=== PATIENT | male | born 1930 | race Caucasian/White ===

== ENCOUNTER 2017-08-24 17:05 | Emergency (ER) | payer MEDICARE ==
[~2017-08-24] VITALS: Ht 170.2 cm; Wt 91.0 kg
[~2017-08-24 17:05] MED LIST: ACET325 PO; ALLO300T2 PO; CHOL1TAB7 PO; COUM4TAB7 PO; ENOX100P SQ; FINA5TAB77 PO; GABA100C4 PO; HYDR-3580 PO; LUTE1CAP PO; MAGN250T13 PO; METO50CR PO; OMEGCAP2 PO; OXYB5TAB33 PO; PANT20 PO; RESV50CA PO; SIMV40 PO; TAMS0.4C67 PO; TELM1TAB PO; TRIA50 PO; Z.0.COMMODE-3:1; Z.0.WALKERFRONT
[2017-08-24 17:16] VITALS: BP 189/83; PULSE 102; RESP 16; TEMP 97.7; O2SAT 95
--- NOTE | 2017-08-24 17:46 | PD ---
HPI Chief Complaint: Fall Time Seen by Provider: 17:29 Travel History International Travel<30 days: No Contact w/Intl Traveler<30days: No Traveled to known affect area: No History of Present Illness HPI Patient 86-year-old male presents emergency department for evaluation of left- sided chest pain. Patient states he went out to get the newspaper this morning the wind was blowing the door hit him on his side and knocked him over, he states he hit his chest against the wall. Since then he's been having some chest wall pain. Denies any head injury headache neck pain back pain. States it hurts worse when he takes deep breath. No shortness of breath, no nausea no vomiting no bruising on his abdomen. States she also has some right knee pain but this is chronic for him. He took a hydrocodone 7.5/325 at home with minimal pain relief. Symptoms started this morning, constant, worsens when takes deep breath, context as above. PFSH Past Medical History Hx Anticoagulant Therapy: Yes (COUMADIN) Arthritis: Yes Asthma: No Atrial Fibrillation: Yes Autoimmune Disease: No Heart Rhythm Problems: Yes (AFIB) Cancer: No Cardiac Catheterization: Yes (STENT 2008) Cardiovascular Problems: Yes (ARTIFICIAL VALVE) High Cholesterol: Yes Chest Pain: Yes Congestive Heart Failure: No COPD: Yes Diminished Hearing: Yes (HEARING AIDS) Endocrine: No GERD: Yes (OCCASIONAL) Genitourinary: No Hiatal Hernia: No Hypertension: Yes Immune Disorder: No Implanted Vascular Access Dvce: Yes Kidney Stones: Yes Musculoskeletal: Yes Neurologic: No Psychiatric: No Reproductive: No Respiratory: Yes Immunizations Current: Yes Myocardial Infarction: Yes (2008) Sleep Apnea: No Ulcer: No Influenza Vaccination: Yes Past Surgical History AICD: No Arteriovenous Shunt: No Cardiac Surgery: Yes (MITRAL VALVE REPLACEMENT 1997) Genitourinary Surgery: Yes (VASECTOMY) Insulin Pump: No Joint Replacement: No Neurologic Surgery: Yes (LAMINECTOMY) Pacemaker: No Thoracic Surgery: Yes Valve Replacement: Yes (MITRAL VALVE REPLACEMENT 1997) Other Surgery: Yes (HEMORRHOIDECTOMY) Family History Family Myocardial Infarction: Yes (MOTHER AND FATHER) Social History Alcohol Use: Yes (3-4 DRINKS PER WEEK) Tobacco Use: No Substance Use: No Allergies-Medications (Allergen,Severity, Reaction): Uncoded Allergies: MUSCLE RELAXERS, (Allergy, Mild, ITCHING., 08/24/17) TRANQUILIZERS (Allergy, Mild, ITCHING., 08/24/17) Reported Meds & Prescriptions Reported Meds & Active Scripts Active Percocet (Oxycodone-Acetaminophen) 10-325 mg Tab 1 Tab PO Q6H PRN Reported Resveratrol 50 Mg Cap 50 Mg PO DAILY Allopurinol 300 Mg Tab 300 Mg PO DAILY Pantoprazole (Pantoprazole Sodium) 20 Mg Tab 20 Mg PO DAILY Triamterene-Hydrochlorothiazide 50-25 Mg Cap 1 Cap PO DAILY [place]-3 Fish Oil/Vitamin (Fish Oil-Cholecalciferol) 1,000-1,000 Mg Cap 1 Cap PO DAILY Vitamin D-1000 (Cholecalciferol) 1,000 Unit Tab 400 Units PO DAILY Lutein-Zeaxanthin 6-0.24 Mg Cap Magnesium Oxide 250 Mg Tab 250 Mg PO DAILY Gabapentin 100 Mg Cap 100 Mg PO BID Tamsulosin (Tamsulosin HCl) 0.4 Mg Cap 0.4 Mg PO HS Finasteride 5 Mg Tab 5 Mg PO HS Do not crush. Oxybutynin ER 24 HR (Oxybutynin Chloride) 5 Mg Tab 5 Mg PO HS Metoprolol Tartrate 50 Mg Tab 50 Mg PO DAILY Telmisartan 40 Mg Tab 40 Mg PO DAILY Simvastatin 40 Mg Tab 40 Mg PO HS Warfarin 6 Mg Tab 6 Mg PO DAILY Review of Systems Except as stated in HPI: all other systems reviewed are Neg Physical Exam Narrative GENERAL: Well-developed well-nourished appears younger than stated age in no obvious distress SKIN: No bruising no lacerations seen on his person. HEAD: Atraumatic. Normocephalic. EYES: Pupils equal and round. No scleral icterus. No injection or drainage. ENT: No nasal bleeding or discharge. Mucous membranes pink and moist. NECK: Trachea midline. No JVD. CARDIOVASCULAR: Regular rate and rhythm. No murmur appreciated. RESPIRATORY: No accessory muscle use. Clear to auscultation. Breath sounds equal bilaterally. GASTROINTESTINAL: Abdomen soft, non-tender, nondistended. Hepatic and splenic margins not palpable. No Lee Lyons sign no Maud's Sign. Abdomen soft, no peritoneal signs, no rebound no percussive tenderness. MUSCULOSKELETAL: No obvious deformities. No clubbing. No cyanosis. No edema. Patient is some tenderness to the left flank over the inferior most ribs, pain seems to originate from his posterior ribs where he is most tender. No bruising no step-off no abrasions. No midline CT or L-spine tenderness. 5 out of 5 strength in all 4 extremities. Patient does have a small abrasion over the anterior right knee. No bony tenderness, full nontender range of motion of all extremities, no bony tenderness of any extremity NEUROLOGICAL: Awake and alert. No obvious cranial nerve deficits. Motor grossly within normal limits. Normal speech. PSYCHIATRIC: Appropriate mood and affect; insight and judgment normal. Data Data Last Documented VS Vital Signs Date Time Temp Pulse Resp B/P (MAP) Pulse Ox O2 Delivery O2 Flow Rate FiO2 08/24/17 19:18 81 18 177/76 (109) 94 08/24/17 17:16 97.7 Orders Orders Ribs, Uni (W/O Exp Cxr) (08/24/17 ) Chest, Pa & Lat (08/24/17 ) Ed Poc Ultrasound (08/24/17 ) Oxycodone (Roxicodone) (08/24/17 18:00) Knee, Ltd (1 Or 2vws) (08/24/17 ) Resp Incentive Spirometry (08/24/17 ) Ed Discharge Order (08/24/17 19:10) MDM Medical Decision Making Medical Screen Exam Complete: Yes Emergency Medical Condition: Yes Differential Diagnosis rib fracture, rib contusion, splenic laceration seems less likely, kidney laceration seems less likely. Narrative Course Patient roomed in emergency department, chest x-ray shows multiple left-sided rib fractures. Last 24 hours Impressions Ribs X-Ray 08/24/17 0000 Signed Impressions: Service Date/Time: Thursday, August 24, 2017 18:00 - CONCLUSION: 1. Left- sided rib fractures posteriorly. Antione Garber MD Knee X-Ray 08/24/17 0000 Signed Impressions: Service Date/Time: Thursday, August 24, 2017 18:05 - CONCLUSION: 1. Mild degenerative changes without fracture. 2. Popliteal stent. Antione Garber MD Chest X-Ray 08/24/17 0000 Signed Impressions: Service Date/Time: Thursday, August 24, 2017 18:00 - CONCLUSION: 1. Several left-sided rib fractures. 2. Cardiomegaly with slight interstitial prominence. Antione Garber MD Bedside ultrasound is performed, which shows no obvious spleen or kidney injury and no free fluid in the abdomen. Patient's abdominal exam coupled with this bedside ultrasound lowers the index is suspicion for a spleen or kidney injury to a very small suspicion. Discussed with the patient that we could consider doing a CAT scan be given that he is several hours out from injury this even further lowers possibility. However he is on blood thinners and I cannot completely exclude an injury. He would like to go home now, we discussed at length the signs and symptoms that should prompt return to the ER. He will be staying with his son rm. Incentive spirometer was ordered, pain medication. Discussed follow-up with his primary care physician. Diagnosis Primary Impression: Rib fractures Qualified Codes: S22.42XA - Multiple fractures of ribs, left side, initial encounter for closed fracture Med/Other Pt SpecificInfo: Prescription(s) given Scripts Oxycodone-Acetaminophen (Percocet) 10-325 mg Tab 1 TAB PO Q6H Y for PAIN, #15 TAB 0 Refills Prov: Esau Boland MD 08/24/17 Disposition: 01 DISCHARGE HOME Condition: Stable Esau Boland MD Aug 24, 2017 17:46
[2017-08-24] MEDS ORDERED: TRIA1CAP PO (17:52)
[2017-08-24] MEDS ORDERED: TAMS0.4C4 PO (17:52)
[2017-08-24] MEDS ORDERED: FINA5TAB2 PO (17:52)
[2017-08-24] MEDS ORDERED: VITA1000 PO (17:52)
[2017-08-24] MEDS ORDERED: WARF-60 PO (17:52)
[2017-08-24] MEDS ORDERED: SIMV40TA PO (17:52)
[2017-08-24] MEDS ORDERED: METO50TA PO (17:52)
[2017-08-24] MEDS ORDERED: GABA100C4 PO (17:52)
[2017-08-24] MEDS ORDERED: RESV50CA PO (17:52)
[2017-08-24] MEDS ORDERED: ALLO300T2 PO (17:52)
[2017-08-24] MEDS ORDERED: LUTE1CAP (17:52)
[2017-08-24] MEDS ORDERED: PANT20TA2 PO (17:52)
[2017-08-24] MEDS ORDERED: TELM1TAB PO (17:52)
[2017-08-24] MEDS ORDERED: MAGN250T11 PO (17:52)
[2017-08-24] MEDS ORDERED: OMEGCAP PO (17:52)
[2017-08-24] MEDS ORDERED: OXYB5TAB PO (17:52)
--- NOTE | 2017-08-24 18:30 | RADRPT ---
EXAM DATE/TIME: 08/24/2017 18:05 [facility] COMPARISON: No previous studies available for comparison. INDICATIONS : Right knee pain since falling today. MEDICAL HISTORY : None. SURGICAL HISTORY : Laminectomy. Valve replacement. ENCOUNTER: Initial ACUITY: 1 day PAIN SCORE: 8/10 LOCATION: Right knee. FINDINGS: Two view examination of the right knee demonstrates no evidence of fracture or dislocation. Bony min eralization is normal. Mild degenerative changes. Popliteal stent noted. Osteopenia. CONCLUSION: 1. Mild degenerative changes without fracture. 2. Popliteal stent. Antione Garber MD on August 24, 2017 at 18:28 Board Certified Radiologist. This report was verified electronically.
--- NOTE | 2017-08-24 18:30 | RADRPT ---
EXAM DATE/TIME: 08/24/2017 18:00 [facility] COMPARISON: No previous studies available for comparison. INDICATIONS : Left side chest pain since falling this morning. MEDICAL HISTORY : None. SURGICAL HISTORY : Laminectomy. Valve replacement. ENCOUNTER: Initial ACUITY: 1 day PAIN SCORE: 8/10 LOCATION: Left chest FINDINGS: PA and lateral views of the chest demonstrate cardiomegaly and evidence of previous heart valve repla cement. Slight interstitial prominence. The cardiomediastinal contours are unremarkable. Left-sided r ib fractures. CONCLUSION: 1. Several left-sided rib fractures. 2. Cardiomegaly with slight interstitial prominence. Antione Garber MD on August 24, 2017 at 18:26 Board Certified Radiologist. This report was verified electronically.
--- NOTE | 2017-08-24 18:45 | RADRPT ---
EXAM DATE/TIME: 08/24/2017 18:00 [facility] COMPARISON: No previous studies available for comparison. INDICATIONS : Left rib pain since falling this morning. MEDICAL HISTORY : None. SURGICAL HISTORY : Laminectomy. Valve replacement. ENCOUNTER: Initial ACUITY: 1 day PAIN SCORE: 8/10 LOCATION: Left chest FINDINGS: Multiple views of the right ribs were performed. Several left-sided posterior rib fractures. No pneum othorax. Cardiomegaly and previous heart valve replacement. CONCLUSION: 1. Left-sided rib fractures posteriorly. Antione Garber MD on August 24, 2017 at 18:43 Board Certified Radiologist. This report was verified electronically.
[2017-08-24] MEDS ORDERED: PERC10TA27 PO (19:10)
[2017-08-24 19:18] VITALS: BP 177/76
== END 2017-08-24 19:45 | disposition home or self-care (01) ==
LOC: PHED 17:05
DX: S22.42XA Multiple fractures of ribs, left side, initial encounter for closed fracture (principal); I51.7 Cardiomegaly; I48.91 Unspecified atrial fibrillation; Z79.01 Long term (current) use of anticoagulants; J44.9 Chronic obstructive pulmonary disease, unspecified; I10 Essential (primary) hypertension; I25.2 Old myocardial infarction; Z95.2 Presence of prosthetic heart valve; W18.09XA Striking against other object with subsequent fall, initial encounter; Y92.008 Other place in unspecified non-institutional (private) residence as the place of occurrence of the external cause
CPT/HCPCS: 71046; 71100; 73560; 94150; 99284

== ENCOUNTER 2017-12-02 21:31 | Inpatient (IN) | payer MEDICARE ==
[~2017-12-02] VITALS: Ht 171.4 cm; Wt 100.6 kg
[~2017-12-02 21:31] MED LIST changes: -ACET325 PO; -CHOL1TAB7 PO; -COUM4TAB7 PO; -ENOX100P SQ; +FINA5TAB2 PO; -FINA5TAB77 PO; -HYDR-3580 PO; +LUTE1CAP; -LUTE1CAP PO; +MAGN250T11 PO; -MAGN250T13 PO; -METO50CR PO; +METO50TA PO; +OMEGCAP PO; -OMEGCAP2 PO; +OXYB5TAB PO; -OXYB5TAB33 PO; -PANT20 PO; +PANT20TA2 PO; +PERC10TA27 PO; -SIMV40 PO; +SIMV40TA PO; +TAMS0.4C4 PO; -TAMS0.4C67 PO; +TRIA1CAP PO; -TRIA50 PO; +VITA1000 PO; +WARF-60 PO; -Z.0.COMMODE-3:1; -Z.0.WALKERFRONT
[2017-12-02 21:32] VITALS: BP 174/73; PULSE 101; RESP 20; TEMP 103.8; O2SAT 89
[2017-12-02] MEDS ORDERED: SODIUM CHLOR 0.9% 1000 ML INJ 1,000 ML IV SCH ×2 (21:36→23:15)
[2017-12-02 21:40] VITALS: BP 174/73; PULSE 98; RESP 18; O2SAT 96
[2017-12-02] MEDS ORDERED: SODIUM CHLORIDE 0.9% FLUSH 10 ML FLUSH IV FLUSH PRN (21:45)
--- NOTE | 2017-12-02 21:50 | PD ---
HPI Chief Complaint: Altered mental status Time Seen by Provider: 21:36 Travel History International Travel<30 days: No Contact w/Intl Traveler<30days: No Traveled to known affect area: No History of Present Illness HPI 87-year-old male brought to the emergency room by EMS for altered mental status. He lives at his home and was diagnosed with shingles today. He was put on hydrocodone and he took his first dose today after which she was noticed to be acting confused and bizarre. Patient has been in that state on route and upon arrival. He is able to tell his name and follow commands but is confused in time in place. A rectal temp was done which was 103.5. Patient is not in a condition to give any meaningful history. FORMERLY [facility], [facility] Past Medical History Narrative Medical List of his past medical, surgical, social and family history is reviewed from the nursing note. Hx Anticoagulant Therapy: Yes (COUMADIN) Arthritis: Yes Asthma: No Atrial Fibrillation: Yes Autoimmune Disease: No Heart Rhythm Problems: Yes (AFIB) Cancer: No Cardiac Catheterization: Yes (STENT 2008) Cardiovascular Problems: Yes (ARTIFICIAL VALVE) High Cholesterol: Yes Chest Pain: Yes Congestive Heart Failure: No COPD: Yes Diminished Hearing: Yes (HEARING AIDS) Endocrine: No GERD: Yes (OCCASIONAL) Genitourinary: No Hiatal Hernia: No Hypertension: Yes Immune Disorder: No Implanted Vascular Access Dvce: Yes Kidney Stones: Yes Musculoskeletal: Yes Neurologic: No Psychiatric: No Reproductive: No Respiratory: Yes Immunizations Current: Yes Myocardial Infarction: Yes (2008) Sleep Apnea: No Ulcer: No Past Surgical History AICD: No Arteriovenous Shunt: No Cardiac Surgery: Yes (MITRAL VALVE REPLACEMENT 1997) Genitourinary Surgery: Yes (VASECTOMY) Insulin Pump: No Joint Replacement: No Neurologic Surgery: Yes (LAMINECTOMY) Pacemaker: No Thoracic Surgery: Yes Valve Replacement: Yes (MITRAL VALVE REPLACEMENT 1997) Other Surgery: Yes (HEMORRHOIDECTOMY) Social History Alcohol Use: Yes (3-4 DRINKS PER WEEK) Tobacco Use: No Substance Use: No Allergies-Medications (Allergen,Severity, Reaction): Uncoded Allergies: MUSCLE RELAXERS, (Allergy, Mild, ITCHING., 08/24/17) TRANQUILIZERS (Allergy, Mild, ITCHING., 08/24/17) Comments List of his allergies reviewed from the nursing note. Reported Meds & Prescriptions Reported Meds & Active Scripts Active Reported Allopurinol 300 Mg Tab 300 Mg PO DAILY Triamterene-Hydrochlorothiazide 50-25 Mg Cap 1 Cap PO DAILY Gabapentin 100 Mg Cap 100 Mg PO BID Finasteride 5 Mg Tab 5 Mg PO HS Do not crush. Oxybutynin ER 24 HR (Oxybutynin Chloride) 5 Mg Tab 5 Mg PO HS Telmisartan 40 Mg Tab 40 Mg PO DAILY Simvastatin 40 Mg Tab 40 Mg PO HS Narrative Medication List of his home medications reviewed from the nursing note. Review of Systems ROS Limitations: Altered Mental Status Except as stated in HPI: all other systems reviewed are Neg Physical Exam Exam Limitations: Altered Mental Status Narrative GENERAL: Elderly, altered mental status, moderate distress SKIN: Focused skin assessment warm/dry. Hyperpigmentation of bilateral lower extremities with scabs HEAD: Atraumatic. Normocephalic. EYES: Pupils equal and round. No scleral icterus. No injection or drainage. ENT: No nasal bleeding or discharge. Dry mucous membrane and coated tongue. NECK: Trachea midline. No JVD. CARDIOVASCULAR: Regular rate and rhythm. No murmur appreciated. RESPIRATORY: No accessory muscle use. Clear to auscultation. Breath sounds equal bilaterally. GASTROINTESTINAL: Abdomen soft, non-tender, nondistended. Hepatic and splenic margins not palpable. MUSCULOSKELETAL: No obvious deformities. No clubbing. No cyanosis. No edema. NEUROLOGICAL: Altered mental status, GCS of 13. No obvious cranial nerve deficits. Motor grossly within normal limits. Normal speech. PSYCHIATRIC: Appropriate mood and affect; insight and judgment normal. Data Data Last Documented VS Vital Signs Date Time Temp Pulse Resp B/P (MAP) Pulse Ox O2 Delivery O2 Flow Rate FiO2 12/02/17 22:57 102.0 102 20 115/59 (77) 96 Nasal Cannula 2.00 Orders Orders Electrocardiogram (12/02/17 21:36) Ammonia (12/02/17 21:36) Complete Blood Count With Diff (12/02/17 21:36) Comprehensive Metabolic Panel (12/02/17 21:36) Creatine Kinase (Cpk) (12/02/17 21:36) Prothrombin Time / Inr (Pt) (12/02/17 21:36) Troponin I (12/02/17 21:36) Thyroid Stimulating Hormone (12/02/17 21:36) Urinalysis - C+S If Indicated (12/02/17 21:36) Lactic Acid Sepsis Protocol (12/02/17 21:36) Blood Culture (12/02/17 21:36) Chest, Single Ap (12/02/17 21:36) Ct Brain W/O Iv Contrast(Rout) (12/02/17 21:36) Blood Glucose (12/02/17 21:36) Ecg Monitoring (12/02/17 21:36) Iv Access Insert/Monitor (12/02/17 21:36) Oximetry (12/02/17 21:36) Sodium Chloride 0.9% Flush (Ns Flush) (12/02/17 21:45) Sodium Chlor 0.9% 1000 Ml Inj (Ns 1000 M (12/02/17 21:36) Drug Screen, Random Urine (12/02/17 21:36) Alcohol (Ethanol) (12/02/17 21:36) Acetaminophen (Tylenol) (12/02/17 22:15) Influenzae A/B Antigen (12/02/17 22:04) Piperacil-Tazo 4.5 Gm Premix (Zosyn 4.5 (12/02/17 22:15) Vancomycin Inj (Vancomycin Inj) (12/02/17 22:15) Admit Order (Ed Use Only) (12/02/17 23:03) Labs Laboratory Tests Test 12/02/17 21:45 12/02/17 22:05 12/02/17 22:12 Urine Color YELLOW Urine Turbidity CLEAR Urine pH 6.0 Urine Specific [place] 1.015 Urine Protein NEG mg/dL Urine Glucose (UA) NEG mg/dL Urine Ketones NEG mg/dL Urine Occult Blood NEG Urine Nitrite NEG Urine Bilirubin NEG Urine Urobilinogen 0.2 MG/DL Urine Leukocyte Esterase NEG Urine RBC 0-3 /hpf Urine WBC 0-2 /hpf Urine Squamous Epithelial Cells 0-5 /hpf Urine Bacteria NONE /hpf Microscopic Urinalysis Comment CULT NOT INDICATED Urine Opiates Screen POS Urine Barbiturates Screen NEG Urine Amphetamines Screen NEG Urine Benzodiazepines Screen NEG Urine Cocaine Screen NEG Urine Cannabinoids Screen NEG White Blood Count 11.5 TH/MM3 Red Blood Count 3.93 MIL/MM3 Hemoglobin 12.9 GM/DL Hematocrit 37.8 % Mean Corpuscular Volume 96.2 FL Mean Corpuscular Hemoglobin 32.8 PG Mean Corpuscular Hemoglobin Concent 34.1 % Red Cell Distribution Width 13.6 % Platelet Count 182 TH/MM3 Mean Platelet Volume 6.9 FL Neutrophils (%) (Auto) 88.7 % Lymphocytes (%) (Auto) 3.8 % Monocytes (%) (Auto) 3.5 % Eosinophils (%) (Auto) 0.5 % Basophils (%) (Auto) 3.5 % Neutrophils # (Auto) 10.2 TH/MM3 Lymphocytes # (Auto) 0.4 TH/MM3 Monocytes # (Auto) 0.4 TH/MM3 Eosinophils # (Auto) 0.1 TH/MM3 Basophils # (Auto) 0.4 TH/MM3 CBC Comment DIFF FINAL Differential Comment Prothrombin Time 30.1 SEC Prothromb Time International Ratio 3.0 RATIO Blood Urea Nitrogen 18 MG/DL Creatinine 1.20 MG/DL Random Glucose 92 MG/DL Total Protein 7.6 GM/DL Albumin 3.7 GM/DL Calcium Level 8.9 MG/DL Alkaline Phosphatase 86 U/L Aspartate Amino Transf (AST/SGOT) 28 U/L Alanine Aminotransferase (ALT/SGPT) 22 U/L Total Bilirubin 1.0 MG/DL Sodium Level 134 MEQ/L Potassium Level 4.4 MEQ/L Chloride Level 101 MEQ/L Carbon Dioxide Level 27.1 MEQ/L Anion Gap 6 MEQ/L Estimat Glomerular Filtration Rate 57 ML/MIN Ammonia 17 MCMOL/L Total Creatine Kinase 68 U/L Troponin I LESS THAN 0.02 NG/ML Thyroid Stimulating Hormone 3rd Gen 2.400 uIU/ML Ethyl Alcohol Level LESS THAN 3 MG/DL Lactic Acid Level 1.4 mmol/L [facility] Medical Decision Making Medical Screen Exam Complete: Yes Emergency Medical Condition: Yes Medical Record Reviewed: Yes Interpretation(s) Twelve-lead EKG was reviewed by me. Matti. fib, left axis deviation. Heart rate of 92 bpm. Differential Diagnosis Sepsis, intracranial bleed, metabolic encephalopathy Narrative Course 10:16 PM based on the high-temperature sepsis workup has been initiated. Chest x-ray shows bilateral basilar densities which could be the pneumonia as the cause of his infection. I have ordered Zosyn and vancomycin. Awaiting for rest of the blood test results and CAT scan to be done and resulted. Patient will require admission. I have given him Tylenol for his fever. UA was negative. 10:41 PM blood test results are back and within acceptable limits so far except for slightly elevated white blood cell count and left shift. Influenza is pending. Patient just returned from CAT scan. Awaiting for the CAT scan report. Patient will require admission. 10:51 PM patient's son is in the room and I discussed at length his condition and the test results. The son told me that he was in the house with the patient and his mother. Earlier today he was complaining of some sores inside his mouth and pain going up to his ears. He took his father to the urgent care where he was diagnosed with shingles and was started on acyclovir and hydrocodone. Patient had taken 1 dose. At around 5:00 he was sitting down when he started to have violent shakes and chills. Son gave patient an electric blanket. Soon after that around 6 6:30 PM is when he noticed that father was acting confused and difficulty standing. That is when he called the ambulance service. The CT scan of the head is not done yet. I will sign the case over to the oncoming ER physician. Critical Care Narrative Aggregate critical care time was 30 minutes. Time to perform other separately billable procedures was not included in the critical care time. My time did not include minutes spent treating any other patients simultaneously or on activities that did not directly contribute to the patient's treatment. The services I provided to this patient were to treat and/or prevent clinically significant deterioration that could result in: Sepsis, sepsis protocol, altered mental state I provided critical care services requiring my management, as noted below: Chart data review, documentation time, medication orders and management, vital sign assessments/reviewing monitor data, ordering and reviewing lab tests, ordering and interpreting/reviewing x-rays and diagnostic studies, care of the patient and discussion of the patient with the admitting physicians. Procedures EKG Prior to Arrival: No Diagnosis Primary Impression: Altered mental status Qualified Codes: R41.0 - Disorientation, unspecified Additional Impressions: Fever Qualified Codes: R50.9 - Fever, unspecified Sepsis Qualified Codes: A41.9 - Sepsis, unspecified organism Dehydration Pneumonia Qualified Codes: J18.1 - Lobar pneumonia, unspecified organism Admitting Information Admitting Physician Requests: Admit Scripts Metoprolol Tartrate (Metoprolol Tartrate) 50 Mg Tab 50 MG PO BID for atrial fib/HTN, #30 TAB 0 Refills Prov: Viktor Oro MD 12/03/17 Jefe Tang MD Dec 02, 2017 21:50
[2017-12-02 22:00] LABS: BILIRUBIN, URINE NEG (NEG); BLOOD, URINE NEG (NEG); GLUCOSE,URINE NEG (NEG); KETONE, URINE NEG (NEG); NITRITE,URINE NEG (NEG); URINE COLOR YELLOW (YELLW/STRAW); URINE LEUKOCYTE ESTERASE NEG (NEG)
--- NOTE | 2017-12-02 22:02 | RADRPT ---
EXAM DATE/TIME: 12/02/2017 21:42 [facility] COMPARISON: CHEST SINGLE AP, May 04, 2016, 1:43. INDICATIONS : Short of breath. MEDICAL HISTORY : None. SURGICAL HISTORY : Laminectomy. Aortic Valve replacement ENCOUNTER: Initial ACUITY: 1 day PAIN SCORE: 0/10 LOCATION: Bilateral chest FINDINGS: A single AP portable erect chest was obtained and demonstrates the patient status post median sternot prosper. An artificial heart valve is noted and there is mild cardiomegaly. New patchy mild opacity is p resent in the infrahilar regions and both lung bases. There is no effusion. The bony thorax is otherw ise intact. There are electrocardiogram leads. CONCLUSION: New infrahilar and bibasilar opacities which may represent mild pulmonary edema. Anton Pineda MD on December 02, 2017 at 21:58 Board Certified Radiologist. This report was verified electronically.
[2017-12-02 22:11] LABS: RBC, URINE 0-3 /hpf (0-3); SQUAMOUS EPITHELIAL CELL URINE 0-5 /hpf (0-5); WBC, URINE 0-2 /hpf (0-5)
[2017-12-02 22:15] LABS: AUTOMATED NEUTROPHIL # 10.2 TH/MM3 (1.8-7.7); BASOPHIL # 0.4 TH/MM3 (0-0.2); BASOPHIL % 3.5 % (0.0-2.0); EOSINOPHIL # 0.1 TH/MM3 (0-0.4); EOSINOPHIL % 0.5 % (0.0-4.0); HEMATOCRIT 37.8 % (39.0-51.0); HEMOGLOBIN 12.9 GM/DL (13.0-17.0); LYMPH % 3.8 % (9.0-44.0); LYMPHOCYTE # 0.4 TH/MM3 (1.0-4.8); MEAN CELL VOLUME 96.2 FL (80.0-100.0); MEAN CORPUSCULAR HEMOGLOBIN 32.8 PG (27.0-34.0); MEAN CORPUSCULAR HGB CONC 34.1 % (32.0-36.0); MEAN PLATELET VOLUME 6.9 FL (7.0-11.0); MONO % 3.5 % (0.0-8.0); MONOCYTE # 0.4 TH/MM3 (0-0.9); NEUT % 88.7 % (16.0-70.0); PLATELET COUNT 182 TH/MM3 (150-450); RED BLOOD COUNT 3.93 MIL/MM3 (4.50-5.90); RED CELL DISTRIBUTION WIDTH 13.6 % (11.6-17.2); WHITE BLOOD COUNT 11.5 TH/MM3 (4.0-11.0)
[2017-12-02] MEDS ORDERED: VANCOMYCIN INJ 1,000 MG in SODIUM CHLOR 0.9% 250 ML INJ 250 ML IV ONE (22:15)
[2017-12-02] MEDS ORDERED: ACETAMINOPHEN 325 MG TAB PO ONE (22:15)
[2017-12-02] MEDS ORDERED: PIPERACIL-TAZO 4.5 GM PREMIX 100 ML IV ONE (22:15)
[2017-12-02 22:25] LABS: CHLORIDE 101 MEQ/L (98-107); SODIUM (NA) 134 MEQ/L (136-145)
[2017-12-02 22:29] LABS: ALBUMIN 3.7 GM/DL (3.4-5.0); BICARBONATE 27.1 MEQ/L (21.0-32.0); BLOOD UREA NITROGEN 18 MG/DL (7-18); CALCIUM 8.9 MG/DL (8.5-10.1); GLUCOSE,RANDOM 92 MG/DL (74-106); PROTHROMBIN TIME - PATIENT 30.1 SEC (9.8-11.6)
[2017-12-02 22:32] LABS: ALT (GPT) 22 U/L (12-78); AST (GOT) 28 U/L (15-37); GLOMERULAR FILTRATION RATE 57 ML/MIN (>89)
[2017-12-02 22:34] LABS: TOTAL PROTEIN 7.6 GM/DL (6.4-8.2)
[2017-12-02 22:35] LABS: ALKALINE PHOSPHATASE 86 U/L (45-117)
[2017-12-02 22:37] LABS: TROPONIN I LESS THAN 0.02 NG/ML (0.02-0.05)
--- NOTE | 2017-12-02 22:56 | RADRPT ---
EXAM DATE/TIME: 12/02/2017 22:30 [facility] COMPARISON: CT BRAIN W/O CONTRAST, May 04, 2016, 2:01. INDICATIONS : Altered mental status. RADIATION DOSE: 60.33 CTDIvol (mGy) MEDICAL HISTORY : Chronic obstructive pulmonary disease. Cardiovascular disease SURGICAL HISTORY : None. ENCOUNTER: Initial ACUITY: 1 day PAIN SCALE: 0/10 LOCATION: cranial TECHNIQUE: Multiple contiguous axial images were obtained of the head. Using automated exposure control and adj ustment of the mA and/or kV according to patient size, radiation dose was kept as low as reasonably a chievable to obtain optimal diagnostic quality images. DICOM format image data is available electro nically for review and comparison. FINDINGS: CEREBRUM: The ventricles are normal for age with diffuse atrophic change.. No evidence of midline shift, mass lesion, hemorrhage or acute infarction. No extra-axial fluid collections are seen. 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 POSTERIOR FOSSA: The cerebellum and brainstem are intact. The 4th ventricle is midline. The cerebellopontine angle i s unremarkable. EXTRACRANIAL: The visualized portion of the orbits is intact. SKULL: The calvaria is intact. No evidence of skull fracture. CONCLUSION: Stable noncontrast head CT. Anton Pineda MD on December 02, 2017 at 22:52 Board Certified Radiologist. This report was verified electronically.
[2017-12-02 22:57] VITALS: BP 115/59; PULSE 102; RESP 20; TEMP 102; O2SAT 96
[2017-12-02] MEDS ORDERED: Vancomycin Consult Pharmacy 1 EA OTHER SCH (23:15)
[2017-12-02] MEDS ORDERED: ACETAMINOPHEN 325 MG TAB PO PRN (23:15)
[2017-12-02 23:20] VITALS: BP 115/69; PULSE 88; RESP 20; O2SAT 97
[2017-12-02] MEDS ORDERED: FUROSEMIDE 40 MG/4 ML VIAL IV PUSH ONE (23:30)
[2017-12-03] VITALS (8 sets, daily range): BP systolic 104–174; BP diastolic 52–74; PULSE 84–100; RESP 18–20; TEMP 96.3–101.4; O2SAT 94–98
[2017-12-03] MEDS ORDERED: WARF-21 PO (00:35)
[2017-12-03] MEDS ORDERED: ACYC400T PO (00:46)
[2017-12-03] MEDS ORDERED: HYDR-3580 PO (00:46)
[2017-12-03] MEDS: SODIUM CHLOR 0.9% 1000 ML INJ 1,000 ML IV SCH ×2 (01:05→13:19)
[2017-12-03] MEDS: PIPERACIL-TAZO 3.375 GM PREMIX 50 ML IV SCH ×4 (03:05→20:56)
[2017-12-03 06:34] LABS: AUTOMATED NEUTROPHIL # 12.8 TH/MM3 (1.8-7.7); BASOPHIL % 0.2 % (0.0-2.0); EOSINOPHIL % 0.3 % (0.0-4.0); HEMATOCRIT 35.3 % (39.0-51.0); LYMPHOCYTE # 0.7 TH/MM3 (1.0-4.8); MEAN CELL VOLUME 97.6 FL (80.0-100.0); MEAN CORPUSCULAR HEMOGLOBIN 33.2 PG (27.0-34.0); MEAN CORPUSCULAR HGB CONC 34.1 % (32.0-36.0); MEAN PLATELET VOLUME 7.4 FL (7.0-11.0); MONO % 8.2 % (0.0-8.0); MONOCYTE # 1.2 TH/MM3 (0-0.9); NEUT % 86.3 % (16.0-70.0); PLATELET COUNT 166 TH/MM3 (150-450); RED BLOOD COUNT 3.62 MIL/MM3 (4.50-5.90); WHITE BLOOD COUNT 14.7 TH/MM3 (4.0-11.0)
[2017-12-03 06:36] LABS: CALCIUM 8.7 MG/DL (8.5-10.1)
[2017-12-03 06:37] LABS: BICARBONATE 28.1 MEQ/L (21.0-32.0)
[2017-12-03 06:40] LABS: CREATININE 1.3 MG/DL (0.60-1.30)
[2017-12-03] MEDS ORDERED: METO50TA PO (07:03)
[2017-12-03] MEDS ORDERED: RESP: ALBUTEROL 2.5 MG/IPRATROPIUM 0.5 MG NEB (PRN) NEB (08:00)
[2017-12-03] MEDS: VANCOMYCIN INJ 2,000 MG in SODIUM CHLORID 0.9% 500 ML INJ 500 ML IV SCH (08:28)
--- NOTE | 2017-12-03 08:35 | MH ---
cc: Viktor Oro MD DATE OF ADMISSION: 12/02/2017 PERTINENT ADMISSION DIAGNOSES: 1. Fever and altered mental status. 2. Probable bilateral pneumonia. 3. 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 4. Chronic atrial fibrillation. 5. History of interstitial lung disease. 6. Chronic obstructive pulmonary disease. 7. St. Amari's prosthetic mitral valve replacement. 8. Coronary artery disease with prior percutaneous coronary intervention and bare-metal stent of the left anterior descending in 2008 with a 60% stenosis of the proximal right coronary artery at that time and a 40% left circumflex lesion. 9. Hypertension. 10. Hyperlipidemia. 11. Atherosclerosis of the aorta. 12. Pulmonary hypertension. 13. Peripheral artery disease with prior popliteal stent on the right lower extremity. 14. Gastroesophageal reflux disease/hiatal hernia. 15. Benign prostatic hypertrophy. 16. History of colon polyps. 17. History of stasis dermatitis. PERTINENT HISTORY OF PRESENT ILLNESS: This is an 87-year-old white male who was brought to the emergency room with altered mental status. He apparently was at a walk-in clinic yesterday at [facility] and was seen because of some pain in the right side of the face. He was having sharp pains in the right side of his face and he apparently had some blisters around the right side of the face near the mouth. He was given a script for Zovirax 400 mg 3 times a day and sent home. When he came to the emergency room, he had a rectal temperature of 103.5. He was not really able to give any history at the time to the ER physician. Our workup did involve the chest x-ray which showed some new infrahilar and bibasilar opacities. It should be noted that he sees a hydrotechnical specialist for interstitial lung disease and has COPD. He has had prior x-rays that shows some fibrotic interstitial changes and fibrotic changes throughout portions of the lung. He was given vancomycin and Zosyn in the ED for possible sepsis and blood cultures were done. Urinalysis was negative. He was admitted for possible pneumonia and sepsis. This morning, his fever is down and he is much more alert. He, however, does not hear very well and does not have his hearing aids in. I was able to look through his electronic health record and prior admission records. He does have atrial fibrillation and is on warfarin. He has had coronary artery disease, hypertension, hyperlipidemia and pulmonary hypertension and peripheral artery disease. He is admitted for further antibiotic therapy. He was given some IV fluids last night. I did give him a single dose of Lasix to cover for any eventuality of some CHF in view of the changes on the chest x-ray, but with the clinical picture, it would appear that he had more of an infectious process going on. PAST MEDICAL HISTORY: As mentioned, he has atrial fibrillation, on warfarin. He has had coronary artery disease with prior bare metal stenting of the LAD for a % stenosis at the origin of the first diagonal. At that time, the catheterization showed a 60% proximal right coronary artery stenosis and a 40% left circumflex lesion. He has hypertension, hyperlipidemia, gastroesophageal reflux disease/hiatal hernia. He has interstitial lung disease, as mentioned sees Dr. Dumas, and he has also diagnosed him with COPD. He has had prior bronchoscopy back in 06/2015 when he was having hemoptysis. There were no endobronchial lesions then. He has had history of colon polyps removed in 2003. He has had peripheral artery disease with a prior popliteal stent of the right lower extremity. He has had pulmonary hypertension with his last echo done on 07/26/2015 showing a pulmonary artery pressure of 60 mmHg. At that time, he had some moderate tricuspid regurgitation, and his EF was 55-60%. He had a mechanical prosthetic mitral valve present, which is a St. Amari's valve. He has BPH and has seen urology for this. He has atherosclerosis of the aorta. He has erectile dysfunction. PAST SURGICAL HISTORY: He had surgery for right ankle fracture. He had a cardiac catheterization on 02/18/2009, as mentioned. He had a hemorrhoidectomy, vasectomy and placement of a St. Amari's mechanical prosthetic mitral valve. He has had a lumbar laminectomy. He had some eyelid surgery on the right eye in the past. He has had a bronchoscopy in 06/2015 and a colonoscopy last on 12/13/2003 with 2 polyps. He had an EGD 04/03/2015 that showed some mild gastritis. EGD in 2003 that showed chronic reflux, small hiatal hernia and gastritis. ALLERGIES: APPARENTLY HE HAS HAD PROBLEM WITH ROBAXIN XANAX, ATIVAN, AND FLEXERIL. MEDICATIONS: 1. Finasteride 5 mg a day. 2. Gabapentin 100 mg 3 times a day. 3. Metoprolol 50 mg twice a day. 4. Oxybutynin 5 mg at night. 5. Pantoprazole 40 mg a day. 6. Simvastatin 40 mg a day. 7. Triamterene/HCTZ 37.5/25 one a day. 8. Telmisartan 40 mg a day. 9. Warfarin. He takes a 5 mg tablet 1-/2 daily. 10. The EHR has listed that he has Atrovent and Albuterol nebulizer solution to use as needed. FAMILY HISTORY: His mother had a heart attack. There is family history of hypertension. SOCIAL HISTORY: He is . He is retired. 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 He was a former smoker, having quit in 1966. He has occasional drink of alcohol. REVIEW OF SYSTEMS: GENERAL: He has had the fever is mentioned. HEENT: He has had these sores that came up around the mouth yesterday and he mentions that he has had this before. He has had some right facial pain that is sharp. 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 CARDIOVASCULAR: He denied any chest pain or palpitations. PULMONARY: He has had a cough for a few days, he said. He denies any current shortness of breath. GASTROINTESTINAL: No abdominal pain, nausea, vomiting. No diarrhea. GENITOURINARY: Without dysuria or frequency. EXTREMITIES: Without any increased swelling. He does have a history of stasis dermatitis and has had some chronic stasis ulcers on the past. NEUROLOGIC: As mentioned, he came in with altered mental status, but seems to know where he is at this time and more alert. PHYSICAL EXAMINATION: GENERAL: Pleasant white male who is hard of hearing, but in no distress. VITAL SIGNS: His temperature this morning is 98.9, pulse 85, respirations 20, blood pressure 142/72, O2 saturation is 96%. HEENT: TMs are clear. Pupils are equal. Sclerae nonicteric. Mouth: He has some little vesicular eruptions on the right side above the upper lip and a little below the lower lip on the right side that is consistent with a herpetic eruption. Some have some scabs on them at this point. NECK: Without JVD. No bruit. HEART: Irregularly irregular rhythm. There is a grade I/ systolic murmur. LUNGS: Maybe some faint crackles in the bases. No wheezes. ABDOMEN: Soft, nontender. No masses. EXTREMITIES: He has some stasis dermatitis skin changes. No ulcers present. Pulses are diminished in both feet. NEUROLOGIC: He would appear to be oriented. He moves all extremities. Sensation intact. LABORATORY DATA: White count last night was 11.5 at 2205. His white count this morning is 14.7, hemoglobin is 12, platelets were normal. Urine drug screen was positive for opiates, but he does have hydrocodone on his medication list. In the ED, his sodium was 134 last night, 135 this morning. His BUN and creatinine were 18 and 1.2 last night, 17 and 1.3 this morning with GFR of 57 last night and 52 this morning. His ALT, AST were normal. CK was normal. Troponin less than 0.02. TSH was 2.4. Total protein and albumin normal. Ammonia level is normal. Lactic acid was 1.4. Urinalysis was negative. INR was 3.0 last night. Rapid flu test was negative. ASSESSMENT: As noted. PLAN: We will maintain him on vancomycin and Zosyn until cultures are back. We will repeat his chest x-ray this morning. He has been ordered SCDs and ANGELA hose, but also he is on warfarin, which is adequately anticoagulated. He will be maintained on his warfarin. We will go ahead and cover him for possible shingles, but I suspect this is probably herpes labialis. I will put him on Valacyclovir 1 gram 3 times a day for now. He will be maintained on his regular medicines. MD PURVI Allen/REG , 07:24 AM , 08:33 AM
[2017-12-03] MEDS: LOSARTAN 50 MG TAB PO SCH (08:39)
[2017-12-03] MEDS: valACYclovir HCL 500 MG TAB PO SCH ×3 (08:39→18:31)
[2017-12-03] MEDS: ALLOPURINOL 300 MG TAB PO SCH (08:40)
[2017-12-03] MEDS: GABAPENTIN 100 MG CAP PO SCH ×2 (08:40→20:56)
[2017-12-03] MEDS: WARFARIN SOD 7.5 MG TAB PO SCH ×2 (08:40→09:00)
--- NOTE | 2017-12-03 08:55 | RADRPT ---
EXAM DATE/TIME: 12/03/2017 07:52 [place] COMPARISON: CHEST PA & LAT, August 24, 2017, 18:00. INDICATIONS : Cough and congestion MEDICAL HISTORY : Chronic obstructive pulmonary disease. Cardiovascular disease. SURGICAL HISTORY : None. ENCOUNTER: Initial ACUITY: 2 days PAIN SCORE: 5/10 LOCATION: Bilateral chest FINDINGS: The heart is enlarged. Mild interstitial edema is present. Sternal wires are noted. Mitral valve i s evident. The portion of the bony skeleton visualized is unremarkable. CONCLUSION: Mild prominence of interstitium. Failure would be considerations. Fred Duran MD FACR on December 03, 2017 at 8:50 Board Certified Radiologist. This report was verified electronically.
[2017-12-03] MEDS ORDERED: HYDROCHLOROTHIAZIDE PO SCH (09:00)
[2017-12-03] MEDS ORDERED: TRIAMTERENE PO SCH (09:00)
[2017-12-03] MEDS ORDERED: FUROSEMIDE 40 MG/4 ML VIAL IV PUSH ONE (13:00)
--- NOTE | 2017-12-03 20:01 | EKG ---
Date Performed: 12/02/2017 Time Performed: 21:54:07 PTAGE: 87 years EKG: ATRIAL FIBRILLATION BORDERLINE LEFT AXIS DEVIATION ABNORMAL RHYTHM ECG Since the PREVIOUS TRACING , no significant change noted PREVIOUS TRACIN05/04/2016 02.37 DOCTOR: Chilo [place] Interpretating Date/Time 12/03/2017 20:03:37
[2017-12-03] MEDS: TOLTERODINE TARTRATE 2 MG CAP LA PO SCH (20:56)
[2017-12-03] MEDS: FINASTERIDE 5 MG TAB PO SCH (20:56)
[2017-12-03] MEDS: PRAVASTATIN SOD 80 MG TAB PO SCH (20:56)
[2017-12-04] VITALS (7 sets, daily range): BP systolic 144–167; BP diastolic 60–86; PULSE 70–111; RESP 18–20; TEMP 96.2–98.4; O2SAT 93–97
[2017-12-04] MEDS: PIPERACIL-TAZO 3.375 GM PREMIX 50 ML IV SCH ×4 (03:11→22:03)
--- NOTE | 2017-12-04 06:48 | HHI.PR ---
Subjective Remarks Patient reports that he is feeling better. He is disappointed to know that he may have to stay in the hospital another couple of days. Appears much more alert and oriented and initially described on H&P and ER eval. He is notably hard of hearing. Objective Vitals Vital Signs Date Time Temp Pulse Resp B/P (MAP) Pulse Ox O2 Delivery O2 Flow Rate FiO2 12/04/17 00:00 98.4 70 20 160/86 (110) 96 12/03/17 20:00 96 Nasal Cannula 2.00 12/03/17 20:00 100.4 94 20 172/70 (104) 94 12/03/17 16:00 96.4 84 18 104/68 (80) 96 12/03/17 12:00 96.4 87 20 154/54 (87) 98 12/03/17 08:00 99.7 94 20 174/73 (106) 97 GENERAL: Sleeping, arouses to voice and tactile stimulation. Pleasant no acute distress. SKIN: Right upper lip and angle of mouth with a few erythematous drying vesicles , no such lesions on the nose or any periocular area. HEAD: Normocephalic. EYES: No scleral icterus. No injection or drainage. NECK: Supple, trachea midline. No JVD or lymphadenopathy. CARDIOVASCULAR: Regular rate and rhythm with midsystolic click likely associated with valve history, no gallop or rub. RESPIRATORY: Breath sounds equal bilaterally, but patient has scattered rhonchi throughout. No fine crackles. No wheeze. Fair air movement. GASTROINTESTINAL: Abdomen soft, non-tender, nondistended. Bowel sounds normal. MUSCULOSKELETAL: No cyanosis, or edema. Moves all extremities well. BACK: No CVA tenderness. Result Diagram: 12/03/17 0530 12/03/17 05 Imaging Last 72 hours Impressions Chest X-Ray 12/03/17 0700 Signed Impressions: Service Date/Time: Sunday, December 03, 2017 07:52 - CONCLUSION: Mild prominence of interstitium. Failure would be considerations. Fred Duran MD FACR Head CT [id number]/02/172135 Signed Impressions: Service Date/Time: November 22:30 - CONCLUSION: Stable noncontrast head CT. Anton Pineda MD Chest X-Ray 4/12/18 2136 Signed Impressions: Service Date/Time: November 21:42 - CONCLUSION: New infrahilar and bibasilar opacities which may represent mild pulmonary edema. Anton Pineda MD Urinary Catheter: No Vascular Central Line Catheter: No A/P Problem List: (1) Pneumonia ICD Codes: J18.9 - Pneumonia, unspecified organism Status: Acute Plan: Clinically improving. Continue current therapy. (2) Altered mental status ICD Codes: R41.82 - Altered mental status, unspecified Status: Acute Plan: Clinically improved. Likely associated with infectious process as noted above. Patient is quite hard of hearing but is able to provide for me his location, home address and identifies that he lives with his son and . (3) COPD (chronic obstructive pulmonary disease) ICD Codes: J44.9 - Chronic obstructive pulmonary disease, unspecified Status: Chronic Plan: Appears stable. Continue DuoNeb as needed. He has underlying interstitial lung disease as well. (4) Atrial fibrillation ICD Codes: I48.91 - Unspecified atrial fibrillation Status: Chronic Plan: Rate controlled. INR therapeutic. Continue treatment. My exam reveals regular rate and rhythm this morning. (5) S/P MVR (mitral valve replacement) ICD Codes: Z95.2 - Status post mitral valve replacement Status: Chronic Plan: Prosthetic mechanical Saint Amari valve in place per note review. Continue anticoagulation. Valve was replaced in 1989 per patient. Discharge Planning Hopefully discharge in the next 2 days. Problem Qualifiers (1) Pneumonia: Qualified Codes: J18.1 - Lobar pneumonia, unspecified organism (2) Altered mental status: Qualified Codes: R41.0 - Disorientation, unspecified Nguyễn Urbina MD PhD Dec 04, 2017 06:48
[2017-12-04 07:45] LABS: AUTOMATED NEUTROPHIL # 7.3 TH/MM3 (1.8-7.7); BASOPHIL # 0.1 TH/MM3 (0-0.2); EOSINOPHIL # 0.1 TH/MM3 (0-0.4); EOSINOPHIL % 0.7 % (0.0-4.0); HEMATOCRIT 34.1 % (39.0-51.0); HEMOGLOBIN 11.1 GM/DL (13.0-17.0); LYMPH % 7.4 % (9.0-44.0); LYMPHOCYTE # 0.7 TH/MM3 (1.0-4.8); MEAN CELL VOLUME 97.8 FL (80.0-100.0); MEAN CORPUSCULAR HEMOGLOBIN 31.7 PG (27.0-34.0); MEAN CORPUSCULAR HGB CONC 32.4 % (32.0-36.0); MEAN PLATELET VOLUME 7.3 FL (7.0-11.0); MONO % 10.5 % (0.0-8.0); NEUT % 80.4 % (16.0-70.0); PLATELET COUNT 197 TH/MM3 (150-450); RED BLOOD COUNT 3.49 MIL/MM3 (4.50-5.90); RED CELL DISTRIBUTION WIDTH 13.7 % (11.6-17.2); WHITE BLOOD COUNT 9.2 TH/MM3 (4.0-11.0)
[2017-12-04 07:57] LABS: INTERNATIONAL NORMALIZED RATIO 2.7 RATIO; PROTHROMBIN TIME - PATIENT 27.1 SEC (9.8-11.6)
[2017-12-04 08:03] LABS: BICARBONATE 26.6 MEQ/L (21.0-32.0); CALCIUM 8.4 MG/DL (8.5-10.1)
[2017-12-04 08:07] LABS: CREATININE 1.2 MG/DL (0.60-1.30)
[2017-12-04] MEDS: LOSARTAN 50 MG TAB PO SCH (08:11)
[2017-12-04] MEDS: GABAPENTIN 100 MG CAP PO SCH ×2 (08:11→20:08)
[2017-12-04] MEDS: valACYclovir HCL 500 MG TAB PO SCH ×3 (08:11→17:01)
[2017-12-04] MEDS: ALLOPURINOL 300 MG TAB PO SCH (08:11)
[2017-12-04] MEDS: VANCOMYCIN INJ 2,000 MG in SODIUM CHLORID 0.9% 500 ML INJ 500 ML IV SCH (08:12)
[2017-12-04] MEDS: WARFARIN SOD 7.5 MG TAB PO SCH (08:12)
[2017-12-04] MEDS ORDERED: POTASSIUM CHLORIDE 10 MEQ CONTROLLED RELEASE TAB PO ONE (09:00)
[2017-12-04] MEDS: SODIUM CHLOR 0.9% 1000 ML INJ 1,000 ML IV SCH (13:08)
[2017-12-04] MEDS: TOLTERODINE TARTRATE 2 MG CAP LA PO SCH (20:08)
[2017-12-04] MEDS: PRAVASTATIN SOD 80 MG TAB PO SCH (20:08)
[2017-12-04] MEDS: FINASTERIDE 5 MG TAB PO SCH (20:08)
[2017-12-04] MEDS: ACETAMINOPHEN/HYDROcodone 325 MG/7.5 MG TAB PO PRN (20:14)
[2017-12-05] VITALS (7 sets, daily range): BP systolic 140–164; BP diastolic 67–102; PULSE 85–108; RESP 16–20; TEMP 96.8–97.8; O2SAT 94–98
[2017-12-05] MEDS: PIPERACIL-TAZO 3.375 GM PREMIX 50 ML IV SCH (04:32)
[2017-12-05] MEDS: ACETAMINOPHEN/HYDROcodone 325 MG/7.5 MG TAB PO PRN (04:36)
--- NOTE | 2017-12-05 08:01 | HHI.PR ---
Subjective Remarks Feeling better. Seems much more alert and awake this morning. Cough still present with thick phlegm but decreased volume production. Objective Vitals Vital Signs Date Time Temp Pulse Resp B/P (MAP) Pulse Ox O2 Delivery O2 Flow Rate FiO2 12/05/17 00:00 97.8 85 16 150/70 (96) 95 12/04/17 20:16 97 Nasal Cannula 1.00 12/04/17 20:00 97.9 97 18 156/69 (98) 96 12/04/17 16:00 96.2 111 20 167/71 (103) 97 12/04/17 12:00 98.3 100 20 153/83 (106) 96 12/04/17 09:00 98.3 110 18 144/60 (88) 93 12/04/17 08:28 96 Nasal Cannula 2.00 GENERAL: Awake and alert. Slightly hard of hearing is noted. Pleasant no acute distress. SKIN: Right upper lip and angle of mouth with a few erythematous drying vesicles , no such lesions on the nose or any periocular area. HEAD: Normocephalic. EYES: No scleral icterus. No injection or drainage. NECK: Supple, trachea midline. No JVD or lymphadenopathy. CARDIOVASCULAR: Regular rate and rhythm with midsystolic click likely associated with valve history, no gallop or rub. RESPIRATORY: Breath sounds equal bilaterally. scattered rhonchi throughout. No fine crackles. Fair air movement. GASTROINTESTINAL: Abdomen soft, non-tender, nondistended. Bowel sounds normal. MUSCULOSKELETAL: No cyanosis, or edema. Moves all extremities well. BACK: No CVA tenderness. Result Diagram: 12/04/17 0650 12/04/17 0650 Imaging Last 72 hours Impressions Chest X-Ray 12/03/17 0700 Signed Impressions: Service Date/Time: Sunday, December 03, 2017 07:52 - CONCLUSION: Mild prominence of interstitium. Failure would be considerations. Fred Duran MD FACR Head CT 12/02/172135 Signed Impressions: Service Date/Time: November 22:30 - CONCLUSION: Stable noncontrast head CT. Anton Pineda MD Chest X-Ray 12/02/172135 Signed Impressions: Service Date/Time: November 21:42 - CONCLUSION: New infrahilar and bibasilar opacities which may represent mild pulmonary edema. Anton Pineda MD Urinary Catheter: No Vascular Central Line Catheter: No A/P Problem List: (1) Pneumonia ICD Codes: J18.9 - Pneumonia, unspecified organism Status: Acute Plan: Clinically improving. Will convert to oral antibiotic therapy. Plan discharge home tomorrow morning if he continues to improve. We will give 1 dose of Solu-Medrol which may help with the vesicles drying and his occasional wheeze. (2) Altered mental status ICD Codes: R41.82 - Altered mental status, unspecified Status: Acute Plan: Clinically improved. Likely associated with infectious process as noted above. Patient is hard of hearing but is alert and oriented today. He reports that his son does not actually live with them chronically but is here for 2 weeks from [place] to help with his care. (3) COPD (chronic obstructive pulmonary disease) ICD Codes: J44.9 - Chronic obstructive pulmonary disease, unspecified Status: Chronic Plan: Appears stable. Continue DuoNeb as needed. He has underlying interstitial lung disease as well. (4) Atrial fibrillation ICD Codes: I48.91 - Unspecified atrial fibrillation Status: Chronic Plan: Rate controlled. INR therapeutic. Continue treatment. Regular rate and rhythm with occasional extrasystole noted. (5) S/P MVR (mitral valve replacement) ICD Codes: Z95.2 - Status post mitral valve replacement Status: Chronic Plan: Prosthetic mechanical Saint Amari valve in place per note review. Continue anticoagulation. Valve was replaced in 1989 per patient. Discharge Planning Hopefully discharge tomorrow if he continues to improve and tolerates oral medication. Problem Qualifiers (1) Pneumonia: Qualified Codes: J18.1 - Lobar pneumonia, unspecified organism (2) Altered mental status: Qualified Codes: R41.0 - Disorientation, unspecified Nguyễn Urbina MD PhD Dec 05, 2017 08:01
[2017-12-05 08:13] LABS: INTERNATIONAL NORMALIZED RATIO 3.4 RATIO; PROTHROMBIN TIME - PATIENT 33.8 SEC (9.8-11.6)
[2017-12-05 08:14] LABS: CALCIUM 8.5 MG/DL (8.5-10.1)
[2017-12-05 08:15] LABS: BICARBONATE 25.9 MEQ/L (21.0-32.0)
[2017-12-05 08:18] LABS: CREATININE 0.94 MG/DL (0.60-1.30)
[2017-12-05] MEDS ORDERED: PHARMACY ORDERED LAB ONE (08:45)
[2017-12-05] MEDS ORDERED: methylPREDNISolone SOD SUCC 40 MG/1 ML VIAL IV PUSH ONE (09:00)
[2017-12-05] MEDS: LEVOFLOXACIN 750 MG TAB PO SCH (09:46)
[2017-12-05] MEDS: valACYclovir HCL 500 MG TAB PO SCH ×3 (09:46→18:08)
[2017-12-05] MEDS: GABAPENTIN 100 MG CAP PO SCH ×2 (09:47→20:23)
[2017-12-05] MEDS: WARFARIN SOD 7.5 MG TAB PO SCH (09:47)
[2017-12-05] MEDS: ALLOPURINOL 300 MG TAB PO SCH (09:47)
[2017-12-05] MEDS: LOSARTAN 50 MG TAB PO SCH (09:47)
[2017-12-05] MEDS ORDERED: ARTIFICIAL TEARS OPTH SOLN 15 ML BTL EACH EYE PRN (18:00)
[2017-12-05] MEDS: TOLTERODINE TARTRATE 2 MG CAP LA PO SCH (20:23)
[2017-12-05] MEDS: FINASTERIDE 5 MG TAB PO SCH (20:23)
[2017-12-05] MEDS: PRAVASTATIN SOD 80 MG TAB PO SCH (20:23)
[2017-12-05] MEDS: METOPROLOL TARTRATE 25 MG TAB PO SCH (21:01)
[2017-12-06] VITALS: BP 146/90; PULSE 100; RESP 19; TEMP 97.5; O2SAT 95
[2017-12-06 06:25] LABS: INTERNATIONAL NORMALIZED RATIO 5.2 RATIO; PROTHROMBIN TIME - PATIENT 52.2 SEC (9.8-11.6)
--- NOTE | 2017-12-06 06:46 | HHI.PR ---
Subjective Remarks Feeling much better. Still with productive cough but overall improved. Slept well. No more fever. Ready for discharge home. Objective Vitals Vital Signs Date Time Temp Pulse Resp B/P (MAP) Pulse Ox O2 Delivery O2 Flow Rate FiO2 12/06/17 00:00 97.5 100 19 146/90 (108) 95 12/05/17 20:15 95 21 12/05/17 20:00 97.0 103 17 164/102 (122) 94 12/05/17 16:00 97.2 96 20 155/74 (101) 95 12/05/17 12:00 97.7 108 20 164/70 (101) 94 12/05/17 08:00 96.8 94 20 140/67 (91) 94 12/05/17 07:25 98 Nasal Cannula 1.00 GENERAL: Sleeping, arouses to voice. Oriented 3. Slightly hard of hearing is noted. Pleasant no acute distress. SKIN: Right upper lip and angle of mouth with a few erythematous drying vesicles , no such lesions on the nose or any periocular area. HEAD: Normocephalic. EYES: No scleral icterus. No injection or drainage. NECK: Supple, trachea midline. No JVD or lymphadenopathy. CARDIOVASCULAR: Regular rate and rhythm with midsystolic click likely associated with valve history, no gallop or rub. RESPIRATORY: Breath sounds equal bilaterally. Good air movement. No wheeze or crackles on exam. GASTROINTESTINAL: Abdomen soft, non-tender, nondistended. Bowel sounds normal. MUSCULOSKELETAL: No cyanosis, or edema. Moves all extremities well. SCDs remain in place. BACK: No CVA tenderness. Result Diagram: 12/04/17 0650 12/05/17 0648 Imaging Last 72 hours Impressions Chest X-Ray 12/03/17 0700 Signed Impressions: Service Date/Time: Sunday, December 03, 2017 07:52 - CONCLUSION: Mild prominence of interstitium. Failure would be considerations. Ferd Duran MD FACR Head CT 12/02/172135 Signed Impressions: Service Date/Time: November 22:30 - CONCLUSION: Stable noncontrast head CT. Anton Pineda MD Chest X-Ray 12/02/172135 Signed Impressions: Service Date/Time: November 21:42 - CONCLUSION: New infrahilar and bibasilar opacities which may represent mild pulmonary edema. Anton Pineda MD Urinary Catheter: No Vascular Central Line Catheter: No A/P Problem List: (1) Pneumonia ICD Codes: J18.9 - Pneumonia, unspecified organism Status: Acute Plan: Clinically improving. Tolerating oral antibiotic therapy well. Discharge home later today. (2) Altered mental status ICD Codes: R41.82 - Altered mental status, unspecified Status: Acute Plan: Clinically improved and back to baseline. Likely associated with infectious process as noted above. (3) COPD (chronic obstructive pulmonary disease) ICD Codes: J44.9 - Chronic obstructive pulmonary disease, unspecified Status: Chronic Plan: Appears stable. Continue DuoNeb as needed. He has underlying interstitial lung disease as well. (4) Atrial fibrillation ICD Codes: I48.91 - Unspecified atrial fibrillation Status: Chronic Plan: Rate controlled. INR somewhat elevated today which is likely associated with antibiotic therapy. We will hold warfarin therapy today and recheck INR tomorrow as outpatient. Adjust warfarin dosing as appropriate. (5) S/P MVR (mitral valve replacement) ICD Codes: Z95.2 - Status post mitral valve replacement Status: Chronic Plan: Prosthetic mechanical Saint Amari valve in place per note review. INR supratherapeutic is noted. Will adjust dosing as appropriate with goal INR of 2.5-3.5. Valve was replaced in 1989 per patient. Discharge Planning Discharge home today with home health Problem Qualifiers (1) Pneumonia: Qualified Codes: J18.1 - Lobar pneumonia, unspecified organism (2) Altered mental status: Qualified Codes: R41.0 - Disorientation, unspecified Nguyễn Urbina MD PhD Dec 06, 2017 06:46
--- NOTE | 2017-12-06 06:49 | HHI.FF ---
Face to Face Verification Diagnosis: (1) Altered mental status (2) Pneumonia (3) S/P MVR (mitral valve replacement) Physical Therapy Order: Evaluate and Treat, Improve ambulation, Strength and gait training Home Health Nursing Order: Medical education Signs/symptoms of disease process Instructions: Home health to draw INR on 12/07/2017 I have seen patient Robin ManzanoJr on 12/06/17. My clinical findings support the need for the requested home health care services because: Ltd mobility - disease progression Patient has SOB Deconditioned w/ increased weakness I certify that my clinical findings support that this patient is homebound because: Hx COPD- exertion dyspnea/weakness Unsafe to leave home unassisted Nguyễn Urbina MD PhD Dec 06, 2017 06:49
[2017-12-06] MEDS ORDERED: WARF-23 PO (07:01)
[2017-12-06] MEDS ORDERED: LEVA750T9 PO (07:01)
[2017-12-06] MEDS ORDERED: VALT500T PO (07:01)
--- NOTE | 2017-12-06 07:09 | HHI.DS ---
Discharge Summary Admission Date Dec 02, 2017 at 23:06 Discharge Date: Dec 06, 2017 Admitting Diagnosis Sepsis, altered mental status, pneumonia (1) Pneumonia Diagnosis: Principal ICD Codes: J18.9 - Pneumonia, unspecified organism Status: Acute (2) Altered mental status Diagnosis: Principal ICD Codes: R41.82 - Altered mental status, unspecified Status: Acute (3) COPD (chronic obstructive pulmonary disease) Diagnosis: Secondary ICD Codes: J44.9 - Chronic obstructive pulmonary disease, unspecified Status: Chronic (4) Atrial fibrillation Diagnosis: Secondary ICD Codes: I48.91 - Unspecified atrial fibrillation Status: Chronic (5) S/P MVR (mitral valve replacement) Diagnosis: Secondary ICD Codes: Z95.2 - Status post mitral valve replacement Status: Chronic Brief History This is an 87-year-old white male who was brought to the emergency room with altered mental status. He apparently was at a walk-in clinic yesterday at [facility] and was seen because of some pain in the right side of the face. He was having sharp pains in the right side of his face and he apparently had some blisters around the right side of the face near the mouth. He was given a script for Zovirax 400 mg 3 times a day and sent home. When he came to the emergency room, he had a rectal temperature of 103.5. He was not really able to give any history at the time to the ER physician. Our workup did involve the chest x-ray which showed some new infrahilar and bibasilar opacities. It should be noted that he sees a coding specialist for interstitial lung disease and has COPD. He has had prior x-rays that shows some fibrotic interstitial changes and fibrotic changes throughout portions of the lung. He was given vancomycin and Zosyn in the ED for possible sepsis and blood cultures were done. Urinalysis was negative. He was admitted for possible pneumonia and sepsis. This morning, his fever is down and he is much more alert. He, however, does not hear very well and does not have his hearing aids in. I was able to look through his electronic health record and prior admission records. He does have atrial fibrillation and is on warfarin. He has had coronary artery disease, hypertension, hyperlipidemia and pulmonary hypertension and peripheral artery disease. He is admitted for further antibiotic therapy. He was given some IV fluids last night. I did give him a single dose of Lasix to cover for any eventuality of some CHF in view of the changes on the chest x-ray, but with the clinical picture, it would appear that he had more of an infectious process going on. CBC/BMP: 12/04/17 0650 12/05/17 0648 Significant Findings Laboratory Tests Test 12/04/17 06:50 12/05/17 06:48 12/06/17 04:50 Red Blood Count 3.49 MIL/MM3 (4.50-5.90) Hemoglobin 11.1 GM/DL (13.0-17.0) Hematocrit 34.1 % (39.0-51.0) Neutrophils (%) (Auto) 80.4 % (16.0-70.0) Lymphocytes (%) (Auto) 7.4 % (9.0-44.0) Monocytes (%) (Auto) 10.5 % (0.0-8.0) Lymphocytes # (Auto) 0.7 TH/MM3 (1.0-4.8) Monocytes # (Auto) 1.0 TH/MM3 (0-0.9) Prothrombin Time 27.1 SEC (9.8-11.6) 33.8 SEC (9.8-11.6) 52.2 SEC (9.8-11.6) Calcium Level 8.4 MG/DL (8.5-10.1) Potassium Level 3.2 MEQ/L (3.5-5.1) Estimat Glomerular Filtration Rate 57 ML/MIN (>89) 76 ML/MIN (>89) Hospital Course Patient admitted with altered mental status and productive cough with fever as noted above. Chest x-ray was read for opacities consistent with possible pulmonary edema however clinical picture more consistent with pneumonia. He was started on IV antibiotics and did quite well. Vital signs remained stable and he defervesced over the first 2 days of hospital course. His supplemental oxygen requirement decreased as well and he was maintaining oxygen saturations in the mid 90s on room air on the day of discharge. He was converted to oral Levaquin on the day prior to discharge and tolerated this well. It is noted that his INR was somewhat supratherapeutic at 5.4 on the day of discharge. This is likely due to a combination of the antibiotics he was receiving and the fact that he was actually receiving a higher dose of warfarin in-house than he usually takes at home. The warfarin will be held today and will be reinitiated at appropriate dose once INR is around 3-1/2. I explained this to the patient and he voiced understanding. I will also relay this to his primary care physician. 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 He reports this is a recurring issue for him. It responded well to Valtrex treatment. I do not see other rash that would be consistent with shingles at this point however treatment would be similar. Pt Condition on Discharge: Stable Discharge Disposition: Disch w/ Home Health Serv Discharge Instructions DIET: Follow Instructions for: Heart Healthy Diet Activities you can perform: Weight Bearing as Cristofer Other Activity Instructions: Start activity slow with assistance for ambulation and advance as tolerated. Observe fall precautions. Follow up Referrals: PCP Follow-up New Orders: PT/INR - Daily New Medications: Warfarin (Warfarin) 5 Mg Tab 5 MG PO QOD as directed for Blood Clot Prevention, #30 TAB 0 Refills Take 1 pill daily alternating with 1.5 pills every other day (i.e. 5mg one day, 7.5 mg the next...) Levofloxacin (Levaquin) 750 Mg Tablet 750 MG PO DAILY for pneumonia, #6 TAB Valacyclovir (Valtrex) 500 Mg Tab 1000 MG PO TID for hsv, #15 TAB Continued Medications: Allopurinol (Allopurinol) 300 Mg Tab 300 MG PO DAILY for Gout, #30 TAB 0 Refills Finasteride (Finasteride) 5 Mg Tab 5 MG PO HS for Manage Prostate Problems, #30 TAB 0 Refills Do not crush. Gabapentin (Gabapentin) 100 Mg Cap 100 MG PO BID, #60 CAP 0 Refills Hydrocodone-Acetaminophen (Hydrocodone-Acetaminophen) 7.5 Mg-325 Mg Tab 1 TAB PO Q4H PRN for PAIN, TAB 0 Refills Metoprolol Tartrate (Metoprolol Tartrate) 50 Mg Tab 50 MG PO BID for atrial fib/HTN, #30 TAB 0 Refills Oxybutynin ER 24 HR (Oxybutynin ER 24 HR) 5 Mg Tab 5 MG PO HS for Overactive Bladder, TAB 0 Refills Simvastatin (Simvastatin) 40 Mg Tab 40 MG PO HS for Cholesterol Management, #30 TAB 0 Refills Telmisartan (Telmisartan) 40 Mg Tab 40 MG PO DAILY for Blood Pressure Management, #30 TAB 0 Refills Triamterene-Hydrochlorothiazide (Triamterene-Hydrochlorothiazide) 50-25 Mg Cap 1 CAP PO DAILY, #30 CAP 0 Refills Discontinued Medications: Warfarin (Warfarin) 7.5 Mg Tab 7.5 MG PO DAILY for Blood Clot Prevention, #30 TAB 0 Refills Nguyễn Urbina MD PhD Dec 06, 2017 07:09
[2017-12-06 07:50] VITALS: BP 186/77; PULSE 79; RESP 20; TEMP 98.8; O2SAT 94
[2017-12-06] MEDS: LOSARTAN 50 MG TAB PO SCH (09:01)
[2017-12-06] MEDS: METOPROLOL TARTRATE 25 MG TAB PO SCH (09:01)
[2017-12-06] MEDS: ALLOPURINOL 300 MG TAB PO SCH (09:01)
[2017-12-06] MEDS: valACYclovir HCL 500 MG TAB PO SCH (09:01)
[2017-12-06] MEDS: LEVOFLOXACIN 750 MG TAB PO SCH (09:01)
[2017-12-06] MEDS: GABAPENTIN 100 MG CAP PO SCH (09:01)
== END 2017-12-06 10:45 | disposition home health service (06) | DRG 194 ==
LOC: PHED 21:31 → PHEDA 23:06 → PH3B 12-03 01:20
PROVIDERS: ADMIT Family Medicine; ATTEND Family Medicine
DX: J18.9 Pneumonia, unspecified organism (principal); J44.0 Chronic obstructive pulmonary disease with (acute) lower respiratory infection; I27.20 Pulmonary hypertension, unspecified; I48.91 Unspecified atrial fibrillation; E86.0 Dehydration; B00.1 Herpesviral vesicular dermatitis; I10 Essential (primary) hypertension; E78.5 Hyperlipidemia, unspecified; H91.90 Unspecified hearing loss, unspecified ear; R41.82 Altered mental status, unspecified; I73.9 Peripheral vascular disease, unspecified; I25.10 Atherosclerotic heart disease of native coronary artery without angina pectoris; K21.9 Gastro-esophageal reflux disease without esophagitis; M19.90 Unspecified osteoarthritis, unspecified site; N40.0 Benign prostatic hyperplasia without lower urinary tract symptoms; Z95.2 Presence of prosthetic heart valve; Z79.01 Long term (current) use of anticoagulants; I25.2 Old myocardial infarction; Z82.49 Family history of ischemic heart disease and other diseases of the circulatory system; Z87.891 Personal history of nicotine dependence
CPT/HCPCS: 70450; 71045; 71046; 80048; 80053; 80307; 81001; 82140; 82550; 83605; 84443; 84484; 85025; 85610; 87040; 87804; 93005; 96365; J1940; J2543; J2920; J3370; J7030; J7040; J7050

== ENCOUNTER 2018-05-12 22:38 | Observation (INO) ==
--- NOTE | 2018-05-12 22:57 | ED ---
HPI General Chief Complaint: Chest Pain Stated Complaint: chest pain Time Seen by Provider: 05/12/18 23:12 Source: patient and family Mode of arrival: ambulatory Limitations: no limitations History of Present Illness HPI narrative: 87-year-old male presents to the emergency department by private transportation the care of his son for evaluation of left-sided retrosternal chest pain 1 hour radiating into the left upper extremity. Patient denies shortness of breath sweats nausea vomiting or neck jaw back or abdominal pain. Patient did have over an hour time approximately 6 and lingual nitroglycerin with symptom relief but return of chest pain. Patient takes Coumadin daily for history of mitral valve replacement with titanium valve. Patient denies personal history of atrial fibrillation has had previous CAD with stent placement and remote UT. Patient does not describe pleuritic pain. No aspirin prior to arrival to the emergency department. Patient has not taken his evening dose of warfarin this evening; typically takes warfarin at 11 PM. MD complaint: chest pain STEMI Alert: No Onset (ago): hour(s) Duration: constant and other (waxing and waning) Onset: during rest Pain location: left chest Severity: severe Quality: tightness, aching, heaviness and dull Pain radiation: LUE Relieving factors: nitroglycerin (temporarily) Exacerbating factors: nothing Context: history of DVT/PE (per medical record) Associated symptoms: leg swelling (RLE recently started on cipro for RLE infection) Treatments prior to arrival chest pain: nitroglycerin Related Data Home Medications Medication Instructions Recorded Confirmed albuterol sulfate 2.5 mg INHALATION Q4-6H PRN 05/13/18 05/13/18 allopurinol 300 mg PO DAILY 05/13/18 05/13/18 ciprofloxacin HCl [Cipro] 500 mg PO BID 05/13/18 05/13/18 finasteride 5 mg PO DAILY 05/13/18 05/13/18 gabapentin 100 mg PO TID 05/13/18 05/13/18 hydrocodone-acetaminophen 1 tab PO Q4-6H PRN 05/13/18 05/13/18 ipratropium bromide 0.5 mg INHALATION Q6H PRN 05/13/18 05/13/18 metoprolol tartrate 50 mg PO BID 05/13/18 05/13/18 oxybutynin chloride 5 mg PO DAILY 05/13/18 05/13/18 pantoprazole 40 mg PO DAILY 05/13/18 05/13/18 simvastatin 40 mg PO QPM 05/13/18 05/13/18 telmisartan [Micardis] 40 mg PO DAILY 05/13/18 05/13/18 terazosin 10 mg PO DAILY 05/13/18 05/13/18 triamterene-hydrochlorothiazid 1 tab PO DAILY 05/13/18 05/13/18 warfarin 5 mg PO Q OTHER DAY 05/13/18 05/13/18 warfarin 7.5 mg PO Q OTHER DAY 05/13/18 05/13/18 Allergies Allergy/AdvReac Type Severity Reaction Status Date / Time MUSCLE RELAXERS, Allergy Mild ITCHING. Uncoded 05/13/18 00:11 TRANQUILIZERS Allergy Mild ITCHING. Uncoded 05/13/18 00:11 Review of Systems ROS: all other systems reviewed are negative PMFSH History History Provided By: Patient, Family Member (CAD, coronary stent, mitral valve replacement, DVT, atrial fibrillation, hypertension, dyslipidemia, laminectomy) and Medical Record (CAD, coronary stent, mitral valve replacement, DVT, atrial fibrillation, hypertension, dyslipidemia, laminectomy) Medical History Medical History Cellulitis of right lower extremity (Acute) Gout (Acute) Hypertension (Acute) Surgical History Surgical History H/O mitral valve replacement (Acute) History of arthroplasty of right ankle (Acute) History of laminectomy (Acute) Family History Family History Other Family history in first degree relatives is unremarkable Family history non-contributory Social History Social History Substance History: No History of Abuse Second Hand Smoke Exposure: No Smoking Status: Former smoker How Often Do You Have a Drink Containing Alcohol: Never Recent Travel in [facility] within the Last 8 Weeks: No Recent Out of Country Travel within the Last 8 Weeks: No Exam Narrative Exam Narrative: GENERAL: Well-nourished, well-developed patient. SKIN: Focused skin assessment warm/dry. HEAD: Normocephalic. EYES: No scleral icterus. No injection or drainage. NECK: Supple, trachea midline. No JVD or lymphadenopathy. CARDIOVASCULAR: Regular rate and rhythm without murmurs, gallops, or rubs. RESPIRATORY: Breath sounds equal bilaterally. No accessory muscle use. GASTROINTESTINAL: Abdomen soft, non-tender, nondistended. MUSCULOSKELETAL: No cyanosis, or edema. Attention right lower extremity with erythema edema increased warmth no posterior calf tenderness cording or Homans sign BACK: Nontender without obvious deformity. No CVA tenderness. Course Initial Documented Vital Signs Temperature 98.6 F 05/12/18 22:46 Pulse Rate 69 05/12/18 22:46 Respiratory Rate 18 05/12/18 22:46 Blood Pressure 117/62 05/12/18 22:46 Pulse Oximetry 98 05/12/18 22:46 Last Documented Vital Signs Temperature 96.7 F L 05/13/18 16:00 Pulse Rate 78 05/13/18 18:35 Respiratory Rate 20 05/13/18 18:35 Blood Pressure 146/70 H 05/13/18 16:00 Pulse Oximetry 90 L 05/13/18 16:00 Medical Decision Making MDM Narrative Medical decision making narrative: 87-year-old male presents to the emergency department for left-sided chest pain radiating to the left upper extremity without shortness of breath sweats nausea or vomiting. Patient has taken several nitroglycerin with some improvement of symptoms but recurrent. 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 Patient has been given 1 similar nitroglycerin here with improvement of pain which is down to a 4/10 in intensity from 8/10 in intensity. Patient is also received low-dose aspirin. CK troponin values pending. Nitropaste 1/2 inch to chest wall applied. At 12:50 AM patient is chest pain-free lab values are found to be grossly within normal range mild renal insufficiency mild anemia and slight elevation of BNP 144. Ultrasound right lower extremity is negative for DVT. Plan will be to admit patient to chest pain center per protocol. Review of medical records indicates last stress test in [facility] EMR 03/2012 nuclear stress test no significant reversibility to suggest ischemia EF 56% at apex there is a small fixed defect consistent with prior small infarct. @ 1:15 patient remains CP free--OBS admit to [place] service for [employer] protocol, discussed with and accepted by Dr Lawrence; did not have his 11PM dose of warfarin --given in the ED. Patient will need to be continued on oral antibiotic for existing RLE cellulitis recently started on Cipro 500 mg BID. Medical Screen Exam Complete: Yes Emergency Medical Condition: Yes Differential Diagnosis Differential Diagnosis: Chest pain, atypical chest pain, ACS, UT, CHF, aortic dissection, aortic aneurysm, PE Medical Records Medical records reviewed: Yes I reviewed the patient's medical records. Lab Data Lab results reviewed: Yes I reviewed the patient's lab results. Result diagrams: 05/12/18 23:00 05/12/18 23:00 Lab Results 05/12/18 05/12/18 05/12/18 Range/Units 23:00 23:00 23:00 CBC w Diff Auto diff final WBC 7.8 (4.0-11.0) th/mm3 RBC 3.38 L (4.50-5.90) mil/mm3 Hgb 10.7 L (13.0-17.0) gm/dL Hct 31.9 L (39.0-51.0) % MCV 94.5 (80.0-100.0) fL MCH 31.6 (27.0-34.0) pg MCHC 33.4 (32.0-36.0) % RDW 14.1 (11.6-17.2) % Plt Count 249 (150-450) th/mm3 MPV 6.5 L (7.0-11.0) fL Neut % (Auto) 73.4 H (16.0-70.0) % Lymph % (Auto) 12.4 (9.0-44.0) % [place] % (Auto) 9.9 H (0.0-8.0) % Eos % (Auto) 3.8 (0.0-4.0) % Baso % (Auto) 0.5 (0.0-2.0) % Neut # (Auto) 5.7 (1.8-7.7) th/mm3 Lymph # (Auto) 1.0 (1.0-4.8) th/mm3 [place] # (Auto) 0.8 (0.0-0.9) th/mm3 Eos # (Auto) 0.3 (0.0-0.4) th/mm3 Baso # (Auto) 0.0 (0.0-0.2) th/mm3 WBC Differential . Differential Comment . PT 27.5 H (9.8-11.6) sec INR 2.7 Ratio APTT 38.7 H (24.3-30.1) sec Sodium 136 (136-145) meq/L Potassium 4.3 (3.5-5.1) meq/L Chloride 102 (98-107) meq/L Carbon Dioxide 27.5 (21.0-32.0) meq/L Anion Gap 7 (5-15) meq/L BUN 20 H (7-18) mg/dL Creatinine 1.20 (0.60-1.30) mg/dL Estimated GFR 57 L (>89) mL/min Random Glucose 114 H (74-106) mg/dL Calcium 8.4 L (8.5-10.1) mg/dL Magnesium 2.1 (1.5-2.5) mg/dL Total Bilirubin 0.4 (0.2-1.0) mg/dL AST 20 (15-37) U/L ALT 24 (12-78) U/L Alkaline Phosphatase 81 (45-117) U/L Total Creatine Kinase 49 (39-308) U/L Troponin I Less than 0.02 L (0.02-0.05) ng/mL B-Natriuretic Peptide (0-100) pg/mL Total Protein 7.2 (6.4-8.2) g/dL Albumin 3.3 L (3.4-5.0) g/dL 05/12/18 05/13/18 Range/Units 23:00 02:05 CBC w Diff WBC (4.0-11.0) th/mm3 RBC (4.50-5.90) mil/mm3 Hgb (13.0-17.0) gm/dL Hct (39.0-51.0) % MCV (80.0-100.0) fL MCH (27.0-34.0) pg MCHC (32.0-36.0) % RDW (11.6-17.2) % Plt Count (150-450) th/mm3 MPV (7.0-11.0) fL Neut % (Auto) (16.0-70.0) % Lymph % (Auto) (9.0-44.0) % [place] % (Auto) (0.0-8.0) % Eos % (Auto) (0.0-4.0) % Baso % (Auto) (0.0-2.0) % Neut # (Auto) (1.8-7.7) th/mm3 Lymph # (Auto) (1.0-4.8) th/mm3 [place] # (Auto) (0.0-0.9) th/mm3 Eos # (Auto) (0.0-0.4) th/mm3 Baso # (Auto) (0.0-0.2) th/mm3 WBC Differential Differential Comment PT (9.8-11.6) sec INR Ratio APTT (24.3-30.1) sec Sodium (136-145) meq/L Potassium (3.5-5.1) meq/L Chloride (98-107) meq/L Carbon Dioxide (21.0-32.0) meq/L Anion Gap (5-15) meq/L BUN (7-18) mg/dL Creatinine (0.60-1.30) mg/dL Estimated GFR (>89) mL/min Random Glucose (74-106) mg/dL Calcium (8.5-10.1) mg/dL Magnesium (1.5-2.5) mg/dL Total Bilirubin (0.2-1.0) mg/dL AST (15-37) U/L ALT (12-78) U/L Alkaline Phosphatase (45-117) U/L Total Creatine Kinase 46 (39-308) U/L Troponin I Less than 0.02 L (0.02-0.05) ng/mL B-Natriuretic Peptide 144 H (0-100) pg/mL Total Protein (6.4-8.2) g/dL Albumin (3.4-5.0) g/dL Imaging Data Radiologist's impression: Chest X-Ray 05/12/18 22:54 CONCLUSION: 1. Cardiomegaly. 2. Minimal pulmonary vascular congestion. Venous Doppler Study 05/12/18 22:54 CONCLUSION: Negative study. No venous thrombosis of the right lower extremity. ECG Data EKG Prior to Arrival: No Attestation: I personally reviewed and interpreted this ECG as follows: Prior ECG tracings: not available for review Interpretation: EKG: Atrial fibrillation controlled ventricular rate of [address] elevation or injury pattern noted Discharge Plan Discharge Disposition Patient Disposition: 30 Still Patient Discharge Condition Condition: Stable Discharge Details Diagnosis: Chest pain, Atrial fibrillation, chronic, Cellulitis of leg, right Physicians Team ED Provider: Lianna Mcadams Primary Care Provider: Matthew Pizano Attending Provider: Viktor Oro Status ED Status: Left Department Discharge Information Discharge Date/Time: 05/13/18 02:52
[2018-05-12] MEDS ORDERED: Sodium Chlor 0.9% Inj 250 ML IV.SIG SCH (23:00)
[2018-05-12 23:11] LABS: Baso % (Auto) 0.5 % (0.0-2.0); Eos # (Auto) 0.3 th/mm3 (0.0-0.4); Eos % (Auto) 3.8 % (0.0-4.0); Hematocrit 31.9 % (39.0-51.0); Hemoglobin 10.7 gm/dL (13.0-17.0); Lymph % (Auto) 12.4 % (9.0-44.0); Mean Corpuscular HGB Conc 33.4 % (32.0-36.0); Mean Corpuscular Hemoglobin 31.6 pg (27.0-34.0); Mean Corpuscular Volume 94.5 fL (80.0-100.0); Mean Platelet Volume 6.5 fL (7.0-11.0); Mono # (Auto) 0.8 th/mm3 (0.0-0.9); Mono % (Auto) 9.9 % (0.0-8.0); Neut # (Auto) 5.7 th/mm3 (1.8-7.7); Neut % (Auto) 73.4 % (16.0-70.0); Platelet Count 249 th/mm3 (150-450); Red Blood Count 3.38 mil/mm3 (4.50-5.90); Red Cell Distribution Width 14.1 % (11.6-17.2); White Blood Count 7.8 th/mm3 (4.0-11.0)
[2018-05-12] MEDS: Sodium Chlor 0.9% Inj 500 ML IV.CONT SCH (23:11)
[2018-05-12 23:23] LABS: Chloride 102 meq/L (98-107); Potassium 4.3 meq/L (3.5-5.1); Sodium 136 meq/L (136-145)
[2018-05-12 23:28] LABS: Activated Partial Thrombo Time 38.7 sec (24.3-30.1); INR 2.7 Ratio; Prothrombin Time 27.5 sec (9.8-11.6)
[2018-05-12 23:29] LABS: Calcium 8.4 mg/dL (8.5-10.1)
[2018-05-12 23:30] LABS: Albumin 3.3 g/dL (3.4-5.0); Anion Gap 7 meq/L (5-15); Blood Urea Nitrogen 20 mg/dL (7-18); Carbon Dioxide 27.5 meq/L (21.0-32.0); Glucose,Random 114 mg/dL (74-106); Magnesium 2.1 mg/dL (1.5-2.5)
[2018-05-12 23:33] LABS: Alanine Aminotransferase 24 U/L (12-78); Aspartate Aminotransferase 20 U/L (15-37); Glomerular Filtration Rate 57 mL/min (>89)
[2018-05-12 23:34] LABS: Total Protein 7.2 g/dL (6.4-8.2)
[2018-05-12 23:36] LABS: Alkaline Phosphatase 81 U/L (45-117)
[2018-05-12 23:42] LABS: Creatine Kinase 49 U/L (39-308)
--- NOTE | 2018-05-13 00:13 | US ---
EXAM DATE: 05/13/2018 12:05 AM EDT AGE/SEX: 87 years / Male INDICATIONS: Right lower extremity edema. CLINICAL DATA: This is the patient's subsequent encounter. Patient reports that signs and symptoms h ave been present for > 1 year and indicates a pain score of 5/10. MEDICAL/SURGICAL HISTORY: . Coronary artery disease. Deep vein thrombosis. Atrial fibrillatio n. Hypertension. Dyslipidemia. . Coronary stent. Mitral valve replacement. Laminectomy. COMPARISON: [facility] [place], US LEG RIGHT VENOUS DOPPLER, 08/19/2015. . TECHNIQUE: Venous ultrasound of both lower extremities was performed from the inguinal ligament to t he proximal calf. Real-time, color Doppler and spectral tracing, compression and augmentation techni ques were used. FINDINGS: Normal compression of the deep venous system from the inguinal region to the proximal calf . No echogenic clot is seen. Normal response of the venous system to augmentation and respiration. CONCLUSION: Negative study. No venous thrombosis of the right lower extremity. Electronically signed by: Everton Manning MD 05/13/2018 12:12 AM EDT
[2018-05-13 02:38] LABS: Creatine Kinase 46 U/L (39-308)
[2018-05-13] MEDS: Sodium Chlor 0.9% Inj 500 ML IV.CONT SCH (06:12)
--- NOTE | 2018-05-13 08:24 | P.HP ---
History of Present Illness Primary Care Physician: Matthew Pizano MD Chief Complaint: Chest pain History of Present Illness: This is an 87-year-old male patient with a known medical CAD with WI history, mitral valve replacement on Coumadin, hyperlipidemia, hypertension who presented to the ED via private vehicle with complaints of chest pain. Patient states that yesterday he reports of left-sided retrosternal chest pain that was characteristically throbbing in nature and radiated up his left arm with associated shortness of breath, sweating, and nausea. He states that the pain continued for roughly an hour and he did take 6 nitroglycerin sublingual tablets at home which did relieve the pain. Patient does admit to a cough for the past week, admits to clear colored phlegm, states he has been on antibiotics for right lower extremity cellulitis. Denies any recent fevers, chills, headache, abdominal pain, vomiting, diarrhea or dysuria. Patient does follow with grinder operator automatic, Dr. Ace in the outpatient setting, last seen a month ago, patient denies any changes to his medications. He does admit to history of CAD with history of mitral valve replacement. It is questionable whether he has atrial fibrillation in the past, EKG on presentation shows controlled atrial fibrillation. At the time of assessment patient states that his chest pain has resolved. He just got up to the side of the bed had a bowel movement. He is lying back in bed and states that he feels short of breath with any activity. A right lower extremity ultrasound was done showing negative for DVT. - Diagnosis (1) Chest pain (2) Atrial fibrillation, chronic (3) Cellulitis of leg, right Review of Systems All other systems reviewed negative except as stated in HPI PMFSH - History History Provided By: Patient - Medical History Medical History: Medical History (Last Updated 05/13/18 @ 08:44 by Rosemary Britton) Cellulitis of right lower extremity Gout Hypertension - Surgical History Surgical History: Surgical History (Last Updated 05/13/18 @ 08:44 by Rosemary Britton) H/O mitral valve replacement History of arthroplasty of right ankle History of laminectomy - Family History Family History: Family History (Last Updated 05/13/18 @ 08:24 by Rosemary Britton) Other Family history in first degree relatives is unremarkable Family history non-contributory - Tobacco History Second Hand Smoke Exposure: No Tobacco Use In Past 30 Days: No Smoking Status: Former smoker - Alcohol History How Often Do You Have a Drink Containing Alcohol: Never - Substance Use History Substance History: No History of Abuse - Travel History Recent Travel in the [place] Within the Last 8 Weeks: No Recent Travel Out of the Country Within the Last 8 Weeks: No - Immunization History Tetanus Immunization: Unsure Hx Influenza Vaccine This Season: Yes Medications and Allergies Active Medications: Active Medications Sodium Chloride (Ns Inj) 500 mls @ 70 mls/hr IV.CONT .Q7H9M JOESPH Last Admin: 05/13/18 06:12 Dose: 70 mls/hr Sodium Chloride (Ns Inj) 250 mls @ 0 mls/hr IV.SIG BOLUS JOESPH Last Infusion: 05/13/18 02:33 Dose: Infused Sodium Chloride (Ns Flush) 2 ml IV.FLUSH UNSCH PRN PRN Reason: FLUSH AFTER USING IV ACCESS Sodium Chloride (Ns Flush) 2 ml IV.FLUSH BID JOESPH Sodium Chloride (Ns Flush) 2 ml IV.FLUSH PRN PRN PRN Reason: FLUSH AFTER USING IV ACCESS Allergies Allergy/AdvReac Type Severity Reaction Status Date / Time MUSCLE RELAXERS, Allergy Mild ITCHING. Uncoded 05/13/18 00:11 TRANQUILIZERS Allergy Mild ITCHING. Uncoded 05/13/18 00:11 Home Medications Medication Instructions Recorded Confirmed Type allopurinol 300 mg PO DAILY 05/13/18 05/13/18 History ciprofloxacin HCl [Cipro] 500 mg PO BID 05/13/18 05/13/18 History finasteride 5 mg PO DAILY 05/13/18 05/13/18 History hydrocodone-acetaminophen 1 tab PO Q4-6H PRN 05/13/18 05/13/18 History metoprolol tartrate 50 mg PO BID 05/13/18 05/13/18 History oxybutynin chloride 5 mg PO DAILY 05/13/18 05/13/18 History simvastatin 40 mg PO QPM 05/13/18 05/13/18 History telmisartan [Micardis] 40 mg PO DAILY 05/13/18 05/13/18 History terazosin 10 mg PO DAILY 05/13/18 05/13/18 History triamterene-hydrochlorothiazid 1 tab PO DAILY 05/13/18 05/13/18 History warfarin 5 mg PO Q OTHER DAY 05/13/18 05/13/18 History warfarin 7.5 mg PO Q OTHER DAY 05/13/18 05/13/18 History Exam Vital signs: Vital Signs 05/12/18 22:46 05/12/18 23:00 05/12/18 23:13 Temperature 98.6 F Pulse Rate 69 Respiratory Rate 18 16 Blood Pressure 117/62 Pulse Oximetry 98 94 L 05/12/18 23:14 05/13/18 00:03 05/13/18 01:45 Temperature Pulse Rate 74 79 Respiratory Rate 16 16 Blood Pressure 116/45 L 136/74 Pulse Oximetry 93 L 98 98 05/13/18 02:51 05/13/18 03:14 05/13/18 04:00 Temperature 98.6 F Pulse Rate 78 83 84 Respiratory Rate 16 18 Blood Pressure 136/89 156/74 H Pulse Oximetry 93 L 93 L Intake & Output 05/12/18 05/13/18 05/13/18 18:59 06:59 18:59 Intake Total 750 / 750 Output Total 500 / 500 Balance 250 / 250 Weight 102.6 kg Intake: IV 750 / 750 NS Inj 500 ML @ 70 mls/hr IV. 500 / 500 CONT .Q7H9M JOESPH Rx#:[id number] NS Inj 250 ML @ Wide Open IV. 250 / 250 SIG BOLUS JOESPH Rx#:[id number] Output: Urine 500 / 500 Other: Weight On Admission 102 kg Narrative: GENERAL: Well-developed, well-nourished elderly male patient in [facility]. SKIN: Warm and dry. No rash. HEAD: Normocephalic. Atraumatic. EYES: Pupils equal and round. No scleral icterus. No injection or drainage. ENT: No nasal bleeding or discharge. Mucous membranes pink and moist. NECK: Supple. Trachea midline. CARDIOVASCULAR: Irregularly irregular rhythm. RESPIRATORY: No accessory muscle use. Diminished breath sounds throughout. Breath sounds equal bilaterally. GASTROINTESTINAL: Abdomen soft, non-tender, nondistended. Normoactive bowel sounds x4. MUSCULOSKELETAL: No obvious deformities. Extremities without clubbing, cyanosis , or edema. NEUROLOGICAL: Awake and alert. No obvious cranial nerve deficits. Motor grossly within normal limits. 5/5 muscle strength in bilateral upper and lower extremities. Normal speech. PSYCHIATRIC: Appropriate mood and affect; insight and judgment normal. Results - Labs CBC & Chem 7: 05/12/18 23:00 05/12/18 23:00 Labs: Laboratory Results - last 24 hr 05/12/18 05/12/18 05/12/18 23:00 23:00 23:00 CBC w Diff Auto diff final WBC 7.8 RBC 3.38 L Hgb 10.7 L Hct 31.9 L MCV 94.5 MCH 31.6 MCHC 33.4 RDW 14.1 Plt Count 249 MPV 6.5 L Neut % (Auto) 73.4 H Lymph % (Auto) 12.4 Cocke % (Auto) 9.9 H Eos % (Auto) 3.8 Baso % (Auto) 0.5 Neut # (Auto) 5.7 Lymph # (Auto) 1.0 Cocke # (Auto) 0.8 Eos # (Auto) 0.3 Baso # (Auto) 0.0 WBC Differential . Differential Comment . PT 27.5 H INR 2.7 APTT 38.7 H Sodium 136 Potassium 4.3 Chloride 102 Carbon Dioxide 27.5 Anion Gap 7 BUN 20 H Creatinine 1.20 Estimated GFR 57 L Random Glucose 114 H Calcium 8.4 L Magnesium 2.1 Total Bilirubin 0.4 AST 20 ALT 24 Alkaline Phosphatase 81 Total Creatine Kinase 49 Troponin I Less than 0.02 L B-Natriuretic Peptide Total Protein 7.2 Albumin 3.3 L 05/12/18 05/13/18 23:00 02:05 CBC w Diff WBC RBC Hgb Hct MCV MCH MCHC RDW Plt Count MPV Neut % (Auto) Lymph % (Auto) Cocke % (Auto) Eos % (Auto) Baso % (Auto) Neut # (Auto) Lymph # (Auto) Cocke # (Auto) Eos # (Auto) Baso # (Auto) WBC Differential Differential Comment PT INR APTT Sodium Potassium Chloride Carbon Dioxide Anion Gap BUN Creatinine Estimated GFR Random Glucose Calcium Magnesium Total Bilirubin AST ALT Alkaline Phosphatase Total Creatine Kinase 46 Troponin I Less than 0.02 L B-Natriuretic Peptide 144 H Total Protein Albumin - Imaging Impressions Venous Doppler Study 05/12/18 22:54 CONCLUSION: Negative study. No venous thrombosis of the right lower extremity. Caprini VTE Risk Assessment Caprini VTE Risk Assessment: Moderate/High Risk (score >= 2) Caprini Risk Assessment Model: Point Value = 1 Point Value = 2 Point Value = 3 Point Value = 5 Age 41-60 Minor surgery BMI > 25 kg/m2 Swollen legs Varicose veins or History of unexplained or recurrent spontaneous Oral contraceptives or hormone replacement Sepsis (< 1 month) Serious lung disease, including pneumonia (< 1 month) Abnormal pulmonary function Acute myocardial infarction Congestive heart failure (< 1 month) History of inflammatory bowel disease Medical patient at bed rest Age 61-74 Arthroscopic surgery Major open surgery (> 45 min) Laparoscopic surgery (> 45 min) Malignancy Confined to bed (> 72 hours) Immobilizing plaster cast Central venous access Age >= 75 History of VTE Family history of VTE Factor V Leiden Prothrombin [id number] Lupus anticoagulant Anticardiolipin antibodies Elevated serum homocysteine Heparin-induced thrombocytopenia Other congenital or acquired thrombophilia Stroke (< 1 month) Elective arthroplasty Hip, pelvis, or leg fracture Acute spinal cord injury (< 1 month) Prophylaxis Regimen: Total Risk Factor Score Risk Level Prophylaxis Regimen 0-1 Low Early ambulation 2 Moderate Order ONE of the following: *Sequential Compression Device (SCD) *Heparin 5000 units SQ BID 3-4 Higher Order ONE of the following medications: *Heparin 5000 units SQ TID *Enoxaparin/Lovenox 40 mg SQ daily (WT < 150 kg, CrCl > 30 mL/min) *Enoxaparin/Lovenox 30 mg SQ daily (WT < 150 kg, CrCl > 10-29 mL/min) *Enoxaparin/Lovenox 30 mg SQ BID (WT < 150 kg, CrCl > 30 mL/min) AND/OR *Sequential Compression Device (SCD) 5 or more Highest Order ONE of the following medications: *Heparin 5000 units SQ TID (Preferred with Epidurals) *Enoxaparin/Lovenox 40 mg SQ daily (WT < 150 kg, CrCl > 30 mL/min) *Enoxaparin/Lovenox 30 mg SQ daily (WT < 150 kg, CrCl > 10-29 mL/min) *Enoxaparin/Lovenox 30 mg SQ BID (WT < 150 kg, CrCl > 30 mL/min) AND *Sequential Compression Device (SCD) Assessment and Plan - Assessment (1) Chest pain Code(s): R07.9 - Chest pain, unspecified Status: Acute (2) Atrial fibrillation, chronic Code(s): I48.2 - Chronic atrial fibrillation Status: Acute (3) Cellulitis of leg, right Code(s): L03.115 - Cellulitis of right lower limb Status: Acute - Plan This is an 87-year-old male patient with: Chest pain History of CAD with [place] History of atrial fibrillation History of mitral valve replacement on Coumadin -Patient presented with left-sided retrosternal chest pain 1 hour prior to arrival. Required 6 nitroglycerin tablets at home which did relieve the pain. Symptom-free at this time. -Serial troponins and serial EKGs have been ordered for ruling out ACS purposes. Troponins flat. -EKG reviewed showing atrial fibrillation with controlled rate. Cardiac telemetry continued, patient is in atrial fibrillation with controlled heart rate at this time. Will continue to monitor. -Chest x-ray reviewed, does show some cardiomegaly. -Patient's grinder operator automatic is Dr. Ace, spoke to him today. Since EKGs and serial troponins are negative he would not proceed with stress test. Does have a history of a fib controlled. -Supportive care. Right lower extremity cellulitis -Patient is being treated with ciprofloxacin outpatient for this. This will be continued. -Supportive care. Pulmonary congestion Hypoxia requiring supplemental O2 History of pulmonary hypertension -Patient is dyspneic and requiring 2LNC. CXR reviewed showing some possibility of pulmonary congestion. Will give Lasix 40 mg IV. Assess response and monitor intake and output closely. -Monitor for clinical improvement. Follows closely with Dr. Ace and has had a recent ECHO. DVT prophylaxis: Coumadin. (1) Chest pain Qualifiers: Chest pain type: precordial pain Qualified Code(s): R07.2 - Precordial pain
[2018-05-13] MEDS: Finasteride 5 MG Tablet PO SCH (09:43)
[2018-05-13] MEDS: Metoprolol Tartrate 50 MG Tablet PO SCH ×2 (09:43→22:49)
[2018-05-13] MEDS: Ciprofloxacin 500 MG Tablet PO SCH ×2 (09:43→22:49)
[2018-05-13] MEDS: Allopurinol 300 MG Tablet PO SCH (09:45)
--- NOTE | 2018-05-13 09:49 | XR ---
EXAM DATE: 05/12/2018 11:35 PM EDT AGE/SEX: 87 years / Male INDICATIONS: Chest pain bilaterally today. CLINICAL DATA: This is the patient's initial encounter. Patient reports that signs and symptoms have been present for 1 day and indicates a pain score of 6/10. MEDICAL/SURGICAL HISTORY: None. . Laminectomy. Valve replacement COMPARISON: [facility], CHEST PA & LAT, 12/03/2017. . FINDINGS: Median sternotomy wires are noted status post cardiac surgery. The heart is enlarged. Minimal pulmona ry vascular congestion is noted. No focal alveolar consolidation is noted. CONCLUSION: 1. Cardiomegaly. 2. Minimal pulmonary vascular congestion. Electronically signed by: Esau Amaya MD 05/13/2018 9:47 AM EDT
[2018-05-13] MEDS ORDERED: Triamterene/HCTZ 37.5 MG/25 MG Tablet PO SCH (10:00)
--- NOTE | 2018-05-13 17:44 | P.HP ---
History of Present Illness Primary Care Physician: Matthew Pizano MD Chief Complaint: Chest pain History of Present Illness: This is an 87-year-old male patient with a known medical CAD with GA history, [facility] mechanical mitral valve replacement on Coumadin, hyperlipidemia, hypertension, chronic atrial fibrillation who came to the emergency room last evening and was admitted to the chest pain center. He had been having some left sided retrosternal chest pain that was throbbing in nature and at times radiated into his left upper extremity. The pain and lasted for about an hour and he taken nitroglycerin at home which relieved his pain. He did have some nausea, sweating, shortness of breath he also admits that in the last week he has had occasional cough productive of clear mucus with no fever. Sent slight runny nose. 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 This has improved according to his son who was with the patient when I examined him. Patient had serial EKGs and enzymes which were nondiagnostic for any acute coronary syndrome. He however today developed some slight hypoxemia with his O2 sats dropping down in the 80s in the sounded a little bit congested in the chest so he was put on oxygen. His chest x-ray last evening showed some possible minimal interstitial fluid. His BNP was only minimally elevated. He was given Lasix IV earlier this afternoon and it was felt he should at least stay through the night so I was called to admit him to the [facility]. He currently does not look to be in any distress and he states he has had no further chest pain since last evening. He has no abdominal pain, sore throat, or urinary symptoms. Medical history Hypertension Hyperlipidemia Pulmonary hypertension (last 2D echo on 07-26-15 showed a PAP of 60mm Hg, moderate tricuspid regurgitation, and EF of 55-60%. Coronary artery disease with prior PCI and bare-metal stent of the in 2008. He was noted then to have a 60% stenosis of the proximal right coronary artery and a 40% left circumflex circumflex lesion. Chronic atrial fibrillation COPD History of interstitial lung disease [facility] prosthetic mitral valve replacement Peripheral artery disease with prior popliteal stent of the right lower extremity Gastroesophageal reflux disease/hiatal hernia BPH Stasis dermatitis History of colon polyps Atherosclerosis of the aorta No diabetes mellitus, thyroid disease, peptic ulcer disease, stroke, seizures Surgical history Surgery for a right ankle fracture Cardiac cath on 02/18/2009 as mentioned Hemorrhoidectomy Vasectomy Placement of [facility] mechanical prosthetic mitral valve Lumbar laminectomy Prior right eyelid surgery Bronchoscopy in June 2015 Colonoscopy 12/13/2003 with 2 polyps EGD 04/03/2015 that showed mild gastritis Allergies: She had problem with Robaxin, Xanax, Ativan, and Flexeril Medications: He has been on Cipro 500 mg twice a day since 05-09-18 Finasteride 5 mg daily Gabapentin 100 mg 3 times a day Metoprolol 50 mg twice a day Oxybutynin 5 mg at night Pantoprazole 40 mg daily Simvastatin 40 mg a day Triamterene/HCTZ 37.5/25 1 daily Telmisartan 40 mg daily Warfarin 5 mg alternate 7.5 mg daily Hydrocodone/APAP 5/325 1 tablet 3-4 times a day as needed pain Atrovent and albuterol nebulizers 3-4 times a day as needed Allopurinol 300 mg a day KCl 8 Meq's daily Tamsulosin 0.4 mg a day There is question is whether he is on Terazosin 10 mg a day as well Family history: His mother had a heart attack. There is a family history of hypertension Social history: He is . He is retired. He used to have his [employer] business. He quit smoking around 1966 and smoked about 1 pack per day for 15 years. He denies alcohol use. - Diagnosis (1) Chest pain (2) CHF (congestive heart failure) (3) COPD (chronic obstructive pulmonary disease) (4) Hypertension (5) Hyperlipidemia (6) GERD (gastroesophageal reflux disease) (7) History of mitral valve replacement with mechanical valve (8) Peripheral artery disease (9) Stasis dermatitis (10) Pulmonary hypertension (11) Atherosclerosis of aorta (12) BPH (benign prostatic hyperplasia) (13) Coronary artery disease (14) History of coronary artery stent placement (15) Cellulitis of leg, right Review of Systems Review of systems: General: No fever, chills, sweats. HEENT: No sore throat, earache. He has had a slight runny nose Cardiovascular: No heart palpitations, orthopnea, PND. His breathing is good on oxygen. Pulmonary: No hemoptysis, pleuritic chest pain Gastrointestinal: No nausea, vomiting, abdominal pain, heartburn, indigestion, diarrhea, constipation, melena, rectal bleeding. : No dysuria, hematuria, urgency, frequency, incontinence. Musculoskeletal: Negative Psychiatry: No significant anxiety or depression Extremities: No edema Dermatology: He has chronic stasis dermatitis of the lower legs worse in the right leg. He has a tiny chronic slow healing wound of the right lower leg on the anterior distal aspect Neuro: No headache, confusion, motor weakness, numbness or tingling PMFSH - History History Provided By: Patient - Medical History Medical History: Medical History (Last Updated 05/13/18 @ 08:44 by Rosemary Britton) Cellulitis of right lower extremity Gout Hypertension - Surgical History Surgical History: Surgical History (Last Updated 05/13/18 @ 08:44 by Rosemary Britton) H/O mitral valve replacement History of arthroplasty of right ankle History of laminectomy - Family History Family History: Family History (Last Updated 05/13/18 @ 08:24 by Rosemary Britton) Other Family history in first degree relatives is unremarkable Family history non-contributory - Tobacco History Second Hand Smoke Exposure: No Tobacco Use In Past 30 Days: No Smoking Status: Former smoker - Alcohol History How Often Do You Have a Drink Containing Alcohol: Never - Substance Use History Substance History: No History of Abuse - Travel History Recent Travel in the [place] Within the Last 8 Weeks: No Recent Travel Out of the Country Within the Last 8 Weeks: No - Immunization History Tetanus Immunization: Unsure Hx Influenza Vaccine This Season: Yes Medications and Allergies Active Medications: Active Medications Albuterol (Albuterol Neb (Manny)) 2.5 mg NEB Q6HR NEB MANNY Allopurinol (Zyloprim) 300 mg PO DAILY MANNY Last Admin: 05/13/18 09:45 Dose: 300 mg Ciprofloxacin HCl (Cipro) 500 mg PO BID MANNY Last Admin: 05/13/18 09:43 Dose: 500 mg Finasteride (Proscar) 5 mg PO DAILY MANNY Last Admin: 05/13/18 09:43 Dose: 5 mg Furosemide (Lasix Inj) 40 mg IV.PUSH DAILY MANNY Last Admin: 05/13/18 11:33 Dose: 40 mg Sodium Chloride (Ns Inj) 250 mls @ 0 mls/hr IV.SIG BOLUS MANNY Last Infusion: 05/13/18 02:33 Dose: Infused Ipratropium [place] (Atrovent Neb) 0.5 mg NEB Q6HR NEB [facility] Losartan Potassium (Cozaar) 50 mg PO DAILY [facility] Last Admin: 05/13/18 11:32 Dose: 50 mg Metoprolol Tartrate (Lopressor) 50 mg PO BID [facility] Last Admin: 05/13/18 09:43 Dose: 50 mg Oxybutynin Chloride (Ditropan) 5 mg PO DAILY [facility] Last Admin: 05/13/18 09:43 Dose: 5 mg Pravastatin Sodium (Pravachol) 80 mg PO QPM [facility] Sodium Chloride (Ns Flush) 2 ml IV.FLUSH BID [facility] Last Admin: 05/13/18 09:46 Dose: 2 ml Sodium Chloride (Ns Flush) 2 ml IV.FLUSH PRN PRN PRN Reason: FLUSH AFTER USING IV ACCESS Terazosin HCl (Hytrin) 10 mg PO DAILY [facility] Last Admin: 05/13/18 11:33 Dose: 10 mg Triamterene/HCTZ (Maxzide 37.5 Mg-25 Mg) 1 tab PO DAILY [facility] Last Admin: 05/13/18 09:45 Dose: 1 tab Warfarin Sodium (Coumadin) 7.5 mg PO Q2D [facility] Warfarin Sodium (Coumadin) 5 mg PO Q2D [facility] Allergies Allergy/AdvReac Type Severity Reaction Status Date / Time MUSCLE RELAXERS, Allergy Mild ITCHING. Uncoded 05/13/18 00:11 TRANQUILIZERS Allergy Mild ITCHING. Uncoded 05/13/18 00:11 Home Medications Medication Instructions Recorded Confirmed Type albuterol sulfate 2.5 mg INHALATION Q4-6H PRN 05/13/18 05/13/18 History allopurinol 300 mg PO DAILY 05/13/18 05/13/18 History ciprofloxacin HCl [Cipro] 500 mg PO BID 05/13/18 05/13/18 History finasteride 5 mg PO DAILY 05/13/18 05/13/18 History gabapentin 100 mg PO TID 05/13/18 05/13/18 History hydrocodone-acetaminophen 1 tab PO Q4-6H PRN 05/13/18 05/13/18 History ipratropium bromide 0.5 mg INHALATION Q6H PRN 05/13/18 05/13/18 History metoprolol tartrate 50 mg PO BID 05/13/18 05/13/18 History oxybutynin chloride 5 mg PO DAILY 05/13/18 05/13/18 History pantoprazole 40 mg PO DAILY 05/13/18 05/13/18 History simvastatin 40 mg PO QPM 05/13/18 05/13/18 History telmisartan [Micardis] 40 mg PO DAILY 05/13/18 05/13/18 History terazosin 10 mg PO DAILY 05/13/18 05/13/18 History triamterene-hydrochlorothiazid 1 tab PO DAILY 05/13/18 05/13/18 History warfarin 5 mg PO Q OTHER DAY 05/13/18 05/13/18 History warfarin 7.5 mg PO Q OTHER DAY 05/13/18 05/13/18 History Exam Vital signs: Vital Signs 05/12/18 22:46 05/12/18 23:00 05/12/18 23:13 Temperature 98.6 F Pulse Rate 69 Respiratory Rate 18 16 Blood Pressure 117/62 Pulse Oximetry 98 94 L 05/12/18 23:14 05/13/18 00:03 05/13/18 01:45 Temperature Pulse Rate 74 79 Respiratory Rate 16 16 Blood Pressure 116/45 L 136/74 Pulse Oximetry 93 L 98 98 05/13/18 02:51 05/13/18 03:14 05/13/18 04:00 Temperature 98.6 F Pulse Rate 78 83 84 Respiratory Rate 16 18 Blood Pressure 136/89 156/74 H Pulse Oximetry 93 L 93 L 05/13/18 08:00 05/13/18 10:47 05/13/18 12:00 Temperature 99.1 F 98.1 F Pulse Rate 90 89 Respiratory Rate 18 16 Blood Pressure 163/88 H 160/78 H Pulse Oximetry 88 L 89 L 97 Intake & Output 05/12/18 05/13/18 05/13/18 18:59 06:59 18:59 Intake Total 750 / 750 Output Total 500 / 500 Balance 250 / 250 Weight 102.6 kg Intake: IV 750 / 750 NS Inj 500 ML @ 70 mls/hr IV. 500 / 500 CONT .Q7H9M MANNY Rx#:[id number] NS Inj 250 ML @ Wide Open IV. 250 / 250 SIG BOLUS MANNY Rx#:[id number] Output: Urine 500 / 500 Other: Weight On Admission 102 kg Narrative: This is a pleasant white male in no distress. HEENT: Pupils equal, EOMs intact, sclera nonicteric, mouth without lesions, TMs intact, nose without lesions Neck: No JVD, neck is supple, no carotid bruit Heart: Irregular irregular rhythm without murmurs or gallops Lungs: Faint crackles in the bases and slight rhonchi Abdomen: Soft, nontender, no masses, no organomegaly Extremities: Trace edema of the ankles, pulses palpated but diminished in the feet, no calf tenderness Skin: Stasis dermatitis skin purplish discoloration of both lower legs more evident on the right lower leg. He has a tiny wound that is almost healed on the distal anterior right lower leg near the ankle. No warmness of the skin to touch. No drainage from the wound. Neuro: Alert, oriented, normal motor exam, sensation intact, cranial nerves intact Results - Labs CBC & Chem 7: 05/12/18 23:00 05/12/18 23:00 Labs: Laboratory Results - last 24 hr 05/12/18 05/12/18 05/12/18 23:00 23:00 23:00 CBC w Diff Auto diff final WBC 7.8 RBC 3.38 L Hgb 10.7 L Hct 31.9 L MCV 94.5 MCH 31.6 MCHC 33.4 RDW 14.1 Plt Count 249 MPV 6.5 L Neut % (Auto) 73.4 H Lymph % (Auto) 12.4 Kings % (Auto) 9.9 H Eos % (Auto) 3.8 Baso % (Auto) 0.5 Neut # (Auto) 5.7 Lymph # (Auto) 1.0 Kings # (Auto) 0.8 Eos # (Auto) 0.3 Baso # (Auto) 0.0 WBC Differential . Differential Comment . PT 27.5 H INR 2.7 APTT 38.7 H Sodium 136 Potassium 4.3 Chloride 102 Carbon Dioxide 27.5 Anion Gap 7 BUN 20 H Creatinine 1.20 Estimated GFR 57 L Random Glucose 114 H Calcium 8.4 L Magnesium 2.1 Total Bilirubin 0.4 AST 20 ALT 24 Alkaline Phosphatase 81 Total Creatine Kinase 49 Troponin I Less than 0.02 L B-Natriuretic Peptide Total Protein 7.2 Albumin 3.3 L 05/12/18 05/13/18 23:00 02:05 CBC w Diff WBC RBC Hgb Hct MCV MCH MCHC RDW Plt Count MPV Neut % (Auto) Lymph % (Auto) Kings % (Auto) Eos % (Auto) Baso % (Auto) Neut # (Auto) Lymph # (Auto) Kings # (Auto) Eos # (Auto) Baso # (Auto) WBC Differential Differential Comment PT INR APTT Sodium Potassium Chloride Carbon Dioxide Anion Gap BUN Creatinine Estimated GFR Random Glucose Calcium Magnesium Total Bilirubin AST ALT Alkaline Phosphatase Total Creatine Kinase 46 Troponin I Less than 0.02 L B-Natriuretic Peptide 144 H Total Protein Albumin - Imaging Impressions Chest X-Ray 05/12/18 22:54 CONCLUSION: 1. Cardiomegaly. 2. Minimal pulmonary vascular congestion. Venous Doppler Study 05/12/18 22:54 CONCLUSION: Negative study. No venous thrombosis of the right lower extremity. Caprini VTE Risk Assessment Caprini VTE Risk Assessment: Moderate/High Risk (score >= 2) (He is on Warfarin) Caprini Risk Assessment Model: Point Value = 1 Point Value = 2 Point Value = 3 Point Value = 5 Age 41-60 Minor surgery BMI > 25 kg/m2 Swollen legs Varicose veins or History of unexplained or recurrent spontaneous Oral contraceptives or hormone replacement Sepsis (< 1 month) Serious lung disease, including pneumonia (< 1 month) Abnormal pulmonary function Acute myocardial infarction Congestive heart failure (< 1 month) History of inflammatory bowel disease Medical patient at bed rest Age 61-74 Arthroscopic surgery Major open surgery (> 45 min) Laparoscopic surgery (> 45 min) Malignancy Confined to bed (> 72 hours) Immobilizing plaster cast Central venous access Age >= 75 History of VTE Family history of VTE Factor V Leiden Prothrombin [id number] Lupus anticoagulant Anticardiolipin antibodies Elevated serum homocysteine Heparin-induced thrombocytopenia Other congenital or acquired thrombophilia Stroke (< 1 month) Elective arthroplasty Hip, pelvis, or leg fracture Acute spinal cord injury (< 1 month) Prophylaxis Regimen: Total Risk Factor Score Risk Level Prophylaxis Regimen 0-1 Low Early ambulation 2 Moderate Order ONE of the following: *Sequential Compression Device (SCD) *Heparin 5000 units SQ BID 3-4 Higher Order ONE of the following medications: *Heparin 5000 units SQ TID *Enoxaparin/Lovenox 40 mg SQ daily (WT < 150 kg, CrCl > 30 mL/min) *Enoxaparin/Lovenox 30 mg SQ daily (WT < 150 kg, CrCl > 10-29 mL/min) *Enoxaparin/Lovenox 30 mg SQ BID (WT < 150 kg, CrCl > 30 mL/min) AND/OR *Sequential Compression Device (SCD) 5 or more Highest Order ONE of the following medications: *Heparin 5000 units SQ TID (Preferred with Epidurals) *Enoxaparin/Lovenox 40 mg SQ daily (WT < 150 kg, CrCl > 30 mL/min) *Enoxaparin/Lovenox 30 mg SQ daily (WT < 150 kg, CrCl > 10-29 mL/min) *Enoxaparin/Lovenox 30 mg SQ BID (WT < 150 kg, CrCl > 30 mL/min) AND *Sequential Compression Device (SCD) Assessment and Plan - Assessment (1) Chest pain Code(s): R07.9 - Chest pain, unspecified Status: Acute (2) CHF (congestive heart failure) Code(s): I50.9 - Heart failure, unspecified Status: Acute (3) COPD (chronic obstructive pulmonary disease) Code(s): J44.9 - Chronic obstructive pulmonary disease, unspecified Status: Acute (4) Hypertension Code(s): I10 - Essential (primary) hypertension Status: Acute (5) Hyperlipidemia Code(s): E78.5 - Hyperlipidemia, unspecified Status: Acute (6) GERD (gastroesophageal reflux disease) Code(s): K21.9 - Gastro-esophageal reflux disease without esophagitis Status: Acute (7) History of mitral valve replacement with mechanical valve Code(s): Z95.2 - Presence of prosthetic heart valve Status: Acute (8) Peripheral artery disease Code(s): I73.9 - Peripheral vascular disease, unspecified Status: Acute (9) Stasis dermatitis Code(s): I87.2 - Venous insufficiency (chronic) (peripheral) Status: Acute (10) Pulmonary hypertension Code(s): I27.20 - Pulmonary hypertension, unspecified Status: Acute (11) Atherosclerosis of aorta Code(s): I70.0 - Atherosclerosis of aorta Status: Acute (12) BPH (benign prostatic hyperplasia) Code(s): N40.0 - Benign prostatic hyperplasia without lower urinary tract symptoms Status: Acute (13) Coronary artery disease Code(s): I25.10 - Atherosclerotic heart disease of upper [place] coronary artery without angina pectoris Status: Acute (14) History of coronary artery stent placement Code(s): Z95.5 - Presence of coronary angioplasty implant and graft Status: Acute (15) Cellulitis of leg, right Code(s): L03.115 - Cellulitis of right lower limb Status: Acute - Plan Plan: He was evaluated overnight in the chest pain center with no acute EKG changes or change in his enzyme levels. His chest pain has resolved and is thought to be noncardiac in origin. He has been put on Lasix IV for possible minimal congestive heart failure and a repeat chest x-ray has been ordered. He is on oxygen and that she had to be determine whether he will need oxygen at home or not. He will be given nebulizer treatments with Atrovent and albuterol to help with his breathing. He was maintained on Cipro that he was started on a few days ago for possible minimal cellulitis of the right lower extremity. Currently his skin changes on the appear just to be from stasis dermatitis skin changes. He is on warfarin for his mechanical valve and atrial fibrillation which will be adequate for DVT prophylaxis. 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
[2018-05-13] MEDS: Gabapentin 100 MG Capsule PO SCH (19:40)
--- NOTE | 2018-05-13 20:03 | XR ---
EXAM DATE: 05/13/2018 7:50 PM EDT AGE/SEX: 87 years / Male INDICATIONS: . Shortness of breath. CLINICAL DATA: This is the patient's subsequent encounter. Patient reports that signs and symptoms h ave been present for 2 days and indicates a pain score of 0/10. MEDICAL/SURGICAL HISTORY: None. . Laminectomy. Valve replacement COMPARISON: [facility], CHEST PA & LAT, 12/03/2017. . FINDINGS: Stable mild interstitial changes at the bases. No acute infiltrate or significant effusion. No pneumo thorax. Cardiomegaly. CONCLUSION: Postoperative mitral valve replacement. Cardiomegaly. No acute findings. Electronically signed by: Benitez Rodriguez MD 05/13/2018 8:02 PM EDT
[2018-05-14 07:20] LABS: Potassium 3.8 meq/L (3.5-5.1)
[2018-05-14 07:24] LABS: Calcium 8.3 mg/dL (8.5-10.1)
--- NOTE | 2018-05-14 08:05 | P.DCO ---
- Diagnosis (1) CHF (congestive heart failure) - Physical Therapy Order: Evaluate and treat, Strength and gait training - Home Health Nursing Order: Signs/symptoms of disease process, CHF education, Oxygen administration education - Case Management Consult No - Certification I have seen patient Robin Manzano JR on 05/14/18. My clinical findings support the need for the requested home health care services because: Patient has SOB I certify that my clinical findings support that this patient is homebound because: Unsafe to leave home unassisted (1) CHF (congestive heart failure) Qualifiers: Heart failure type: diastolic
--- NOTE | 2018-05-14 08:38 | P.PN ---
Subjective Interval history: Patient's states he is breathing good on oxygen. No current cough. Chest x-ray shared showed stable findings. He failed his respiratory walk test so oxygen at home is being arranged. No chest pain. Physical Exam Vital signs: Vital Signs 05/13/18 10:47 05/13/18 12:00 05/13/18 16:00 Temperature 98.1 F 96.7 F L Pulse Rate 89 104 H Respiratory Rate 16 20 Blood Pressure 160/78 H 146/70 H Pulse Oximetry 89 L 97 90 L 05/13/18 18:35 05/13/18 20:00 05/13/18 20:40 Temperature 98.8 F Pulse Rate 78 63 79 Respiratory Rate 20 18 20 Blood Pressure 135/66 Pulse Oximetry 94 L 94 L 05/14/18 03:35 05/14/18 07:45 05/14/18 07:51 Temperature Pulse Rate 81 Respiratory Rate 18 Blood Pressure Pulse Oximetry 97 88 L 05/14/18 08:00 Temperature Pulse Rate 78 Respiratory Rate Blood Pressure Pulse Oximetry Intake & Output 05/13/18 05/14/18 05/14/18 18:59 06:59 18:59 Intake Total 500 / 500 Output Total 500 / 500 Balance 0 / 0 Weight 101.4 kg Intake: IV 500 / 500 Output: Urine 500 / 500 Other: # Voids 2 Narrative: This is a pleasant elderly white male in no distress. HEENT: Pupils equal, EOMs intact, mouth without lesions Neck: No JVD, neck is supple Heart: Irregular irregular rhythm without murmurs or gallops Lungs: No rhonchi; very minimal faint crackles in the lung bases Abdomen: Soft, nontender, no masses Extremities: No edema, pulses palpated but slightly diminished, no calf tenderness. Stasis dermatitis skin changes with purple discoloration of both lower legs Neuro: Alert, oriented, normal motor exam, sensation intact Results - Labs CBC & Chem 7: 05/12/18 23:00 05/14/18 06:50 Laboratory Results - last 24 hr 05/14/18 05/14/18 06:50 06:50 Sodium 140 Potassium 3.8 Chloride 105 Carbon Dioxide 28.0 Anion Gap 7 BUN 15 Creatinine 0.98 Estimated GFR 72 L Random Glucose 111 H Calcium 8.3 L B-Natriuretic Peptide 527 H - Imaging Impressions Chest X-Ray 05/12/18 22:54 CONCLUSION: 1. Cardiomegaly. 2. Minimal pulmonary vascular congestion. Chest X-Ray 05/13/18 00:00 CONCLUSION: Postoperative mitral valve replacement. Cardiomegaly. No acute findings. Assessment and Plan - Assessment (1) CHF (congestive heart failure) Code(s): I50.9 - Heart failure, unspecified Status: Acute (2) COPD (chronic obstructive pulmonary disease) Code(s): J44.9 - Chronic obstructive pulmonary disease, unspecified Status: Chronic (3) Chest pain Code(s): R07.9 - Chest pain, unspecified Status: Acute (4) Atrial fibrillation, chronic Code(s): I48.2 - Chronic atrial fibrillation Status: Chronic (5) Cellulitis of leg, right Code(s): L03.115 - Cellulitis of right lower limb Status: Acute (6) Hypertension Code(s): I10 - Essential (primary) hypertension Status: Chronic (7) Hyperlipidemia Code(s): E78.5 - Hyperlipidemia, unspecified Status: Chronic (8) GERD (gastroesophageal reflux disease) Code(s): K21.9 - Gastro-esophageal reflux disease without esophagitis Status: Chronic (9) History of mitral valve replacement with mechanical valve Code(s): Z95.2 - Presence of prosthetic heart valve Status: Chronic (10) Peripheral artery disease Code(s): I73.9 - Peripheral vascular disease, unspecified Status: Chronic (11) Stasis dermatitis Code(s): I87.2 - Venous insufficiency (chronic) (peripheral) Status: Chronic (12) Pulmonary hypertension Code(s): I27.20 - Pulmonary hypertension, unspecified Status: Chronic (13) Atherosclerosis of aorta Code(s): I70.0 - Atherosclerosis of aorta Status: Chronic (14) BPH (benign prostatic hyperplasia) Code(s): N40.0 - Benign prostatic hyperplasia without lower urinary tract symptoms Status: Chronic (15) Coronary artery disease Code(s): I25.10 - Atherosclerotic heart disease of [place] coronary artery without angina pectoris Status: Chronic (16) History of coronary artery stent placement Code(s): Z95.5 - Presence of coronary angioplasty implant and graft Status: Chronic - Plan Plan: He will be discharged today with home oxygen at 2 liters. He will be maintained on Furosemide 40mg daily and followup with Dr Shetty in 3 days. Home health care is ordered. He is on Telmisarten and Metoprolol at home which will be continued. He was evaluated overnight in the chest pain center initially with no acute EKG changes or change in his enzyme levels. His chest pain has resolved and is thought to be noncardiac in origin. He will continue his nebulizer treatments with Atrovent and albuterol at home. He will continue on Cipro that he was started on a few days ago for possible minimal cellulitis of the right lower extremity. Currently his skin changes on the appear just to be from stasis dermatitis skin changes. He is on warfarin for his mechanical valve and atrial fibrillation. (1) CHF (congestive heart failure) Qualifiers: Heart failure type: diastolic (3) Chest pain Qualifiers: Chest pain type: precordial pain Qualified Code(s): R07.2 - Precordial pain
[2018-05-14] MEDS: Finasteride 5 MG Tablet PO SCH (09:10)
[2018-05-14] MEDS: Furosemide 40 MG Tablet PO SCH (09:11)
[2018-05-14] MEDS: Ciprofloxacin 500 MG Tablet PO SCH ×2 (09:11→20:54)
[2018-05-14] MEDS: Gabapentin 100 MG Capsule PO SCH ×3 (09:12→17:28)
[2018-05-14] MEDS: Metoprolol Tartrate 50 MG Tablet PO SCH ×2 (09:12→20:54)
[2018-05-14] MEDS: Allopurinol 300 MG Tablet PO SCH (09:13)
--- NOTE | 2018-05-14 12:57 | ECG ---
Date Performed: 05/13/2018 Time Performed: 02:19:00 PTAGE: 87 years EKG: ATRIAL FIBRILLATION MODERATE INTRAVENTRICULAR CONDUCTION DELAY ABNORMAL RHYTHM ECG PREVIOUS TRACING : 05/12/2018 22.50 Since the previous tracing, no significant change noted DOCTOR: Sudhir Burrell Interpretating Date/Time 05/14/2018 12:56:21
--- NOTE | 2018-05-14 13:04 | ECG ---
Date Performed: 05/12/2018 Time Performed: 22:50:57 PTAGE: 87 years EKG: ATRIAL FIBRILLATION BORDERLINE LEFT AXIS DEVIATION ABNORMAL RHYTHM ECG PREVIOUS TRACING : 12/02/2017 21.54 Since the previous tracing, no significant change noted DOCTOR: Sudhir Burrell Interpretating Date/Time 05/14/2018 13:03:18
--- NOTE | 2018-05-15 07:33 | P.DS ---
Date of admission: 05/13/18 01:10 Primary care physician: Matthew Pizano MD Attending physician on discharge: Viktor Oro Anticipated date of discharge: 05/15/18 Brief History from admission: This is an 87-year-old male patient with a known medical CAD with AK history, [facility] mechanical mitral valve replacement on Coumadin, hyperlipidemia, hypertension, chronic atrial fibrillation who came to the emergency room last evening and was admitted to the chest pain center. He had been having some left sided retrosternal chest pain that was throbbing in nature and at times radiated into his left upper extremity. The pain and lasted for about an hour and he taken nitroglycerin at home which relieved his pain. He did have some nausea, sweating, shortness of breath he also admits that in the last week he has had occasional cough productive of clear mucus with no fever. Sent slight runny nose. He was put on Cipro on 05/09/2018 by his perinatal specialist for a slowly healing wound with surrounding redness and presumed cellulitis at that time. This has improved according to his son who was with the patient when I examined him. Patient had serial EKGs and enzymes which were nondiagnostic for any acute coronary syndrome. He however today developed some slight hypoxemia with his O2 sats dropping down in the 80s in the sounded a little bit congested in the chest so he was put on oxygen. His chest x-ray last evening showed some possible minimal interstitial fluid. His BNP was only minimally elevated. He was given Lasix IV earlier this afternoon and it was felt he should at least stay through the night so [facility]. He currently does not look to be in any distress and he states he has had no further chest pain since last evening. He has no abdominal pain, sore throat, or urinary symptoms. Medical history Hypertension Hyperlipidemia Pulmonary hypertension (last 2D echo on 07-26-15 showed a PAP of 60mm Hg, moderate tricuspid regurgitation, and EF of 55-60%. Coronary artery disease with prior PCI and bare-metal stent of the in 2008. He was noted then to have a 60% stenosis of the proximal right coronary artery and a 40% left circumflex circumflex lesion. Chronic atrial fibrillation COPD History of interstitial lung disease [facility] [facility] prosthetic mitral valve replacement Peripheral artery disease with prior popliteal stent of the right lower extremity Gastroesophageal reflux disease/hiatal hernia BPH Stasis dermatitis History of colon polyps Atherosclerosis of the aorta No diabetes mellitus, thyroid disease, peptic ulcer disease, stroke, seizures Surgical history Surgery for a right ankle fracture Cardiac cath on 02/18/2009 as mentioned Hemorrhoidectomy Vasectomy Placement of [facility] [facility] mechanical prosthetic mitral valve Lumbar laminectomy Prior right eyelid surgery Bronchoscopy in June 2015 Colonoscopy 12/13/2003 with 2 polyps EGD 04/03/2015 that showed mild gastritis Allergies: She had problem with Robaxin, Xanax, Ativan, and Flexeril Medications: He has been on Cipro 500 mg twice a day since 05-09-18 Finasteride 5 mg daily Gabapentin 100 mg 3 times a day Metoprolol 50 mg twice a day Oxybutynin 5 mg at night Pantoprazole 40 mg daily Simvastatin 40 mg a day Triamterene/HCTZ 37.5/25 1 daily Telmisartan 40 mg daily Warfarin 5 mg alternate 7.5 mg daily Hydrocodone/APAP 5/325 1 tablet 3-4 times a day as needed pain Atrovent and albuterol nebulizers 3-4 times a day as needed Allopurinol 300 mg a day KCl 8 Meq's daily Tamsulosin 0.4 mg a day There is question is whether he is on Terazosin 10 mg a day as well Family history: His mother had a heart attack. There is a family history of hypertension Social history: He is . He is retired. 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 He quit smoking around 1966 and smoked about 1 pack per day for 15 years. He denies alcohol use. Patient update on day of discharge: Discharge order was placed yesterday but because they could not get oxygen to his house he was not sent home and the plan is to send him today when oxygen is supplied in his home. He states his breathing is stable. He still has a slight cough. He denies any chest pain. He states he would like to go home today. DS: Diagnosis - Discharge Diagnosis (1) CHF (congestive heart failure) Status: Acute (2) COPD (chronic obstructive pulmonary disease) Status: Chronic (3) Chest pain Status: Acute (4) Atrial fibrillation, chronic Status: Chronic (5) Cellulitis of leg, right Status: Acute (6) Hypertension Status: Chronic (7) Hyperlipidemia Status: Chronic (8) GERD (gastroesophageal reflux disease) Status: Chronic (9) History of mitral valve replacement with mechanical valve Status: Chronic (10) Peripheral artery disease Status: Chronic (11) Stasis dermatitis Status: Chronic (12) Pulmonary hypertension Status: Chronic (13) Atherosclerosis of aorta Status: Chronic (14) BPH (benign prostatic hyperplasia) Status: Chronic (15) Coronary artery disease Status: Chronic (16) History of coronary artery stent placement Status: Chronic DS: Medications - Discharge Medications Prescriptions: furosemide 40 mg PO DAILY #30 tab potassium chloride [Klor-Con 10] 10 meq PO DAILY #30 tab tamsulosin 0.4 mg PO DAILY 30 Days #30 cap DS: Summary Hospital Course: Patient was initially admitted to the chest pain center because of his presentation with chest pain. His EKGs and enzymes showed no evidence of acute coronary syndrome. Because of some hypoxia with O2 sats in the 80s he was admitted to my service (Dr. Eris Oro) on 05/13/2018. He was put on furosemide IV initially for possible CHF. His initial chest x-ray it showed some minimal pulmonary vascular congestion and cardiomegaly. Repeat chest x-ray on 05-13-18 showed some stable mild interstitial changes at the bases. His BNP was mildly elevated. He does have history of COPD and interstitial lung disease but with the slight elevation of his BNP it was presumed he had some minimal to mild CHF. He also has pulmonary hypertension and this may have contributed some to his right-sided heart failure. He has done well on oxygen with his O2 sats in the mid 90s. He has been on his nebulizer treatments as well. Discharge was ordered for yesterday but because Arvind cannot get oxygen in his home is being delayed until the day. He is stable today and will be sent home on 2 L of oxygen with home health care to follow-up as well. He will follow-up with Dr. Pizano in 2-3 days. Discharge medications: Atrovent nebulizer solution 2.5 mg/3 mL's every 6 hours as needed Ipratropium nebulizer solution 0.02% every 6 hours as needed Metoprolol 50 mg twice a day Tamsulosin 0.4 mg daily Simvastatin 40 mg a day Telmisartan 40 mg a day Gabapentin 100 mg 3 times a day Pantoprazole 40 mg a day Allopurinol 300 mg day Oxybutynin 5 mg a day Finasteride 5 mg a day Warfarin 5 mg alternate 7.5 mg daily He will continue Cipro 500 mg twice a day that he has at home He will continue his hydrocodone/APAP 5/325 3-4 times a day as needed for pain 2 L of oxygen nasal cannula - Time Spent with Patient Total time spent providing and/or coordinating discharge services: Greater than 30 minutes - Quality: VTE Deep Vein Thrombosis/Pulmonary Embolism Present on Admission: No Exam Vital signs: Vital Signs 05/14/18 07:45 05/14/18 07:51 05/14/18 08:00 Temperature 97 F L Pulse Rate 91 H Respiratory Rate 20 Blood Pressure 167/76 H Pulse Oximetry 97 88 L 92 L Pulse Oximetry [Resting on Room Air] Pulse Oximetry [Resting with Oxygen] 05/14/18 09:20 05/14/18 10:55 05/14/18 12:00 Temperature 96.6 F L Pulse Rate 76 80 Respiratory Rate 24 20 Blood Pressure 129/62 Pulse Oximetry Pulse Oximetry [Resting on Room Air] 87 L Pulse Oximetry [Resting with Oxygen] 97 05/14/18 15:46 05/14/18 20:00 05/14/18 21:21 Temperature 97.1 F L 98.6 F Pulse Rate 63 83 68 Respiratory Rate 20 12 18 Blood Pressure 126/60 141/73 H Pulse Oximetry 97 96 97 Pulse Oximetry [Resting on Room Air] Pulse Oximetry [Resting with Oxygen] 05/15/18 00:00 05/15/18 03:34 Temperature 97.6 F 98.0 F Pulse Rate 71 78 Respiratory Rate 18 18 Blood Pressure 150/65 H 139/69 Pulse Oximetry 95 96 Pulse Oximetry [Resting on Room Air] Pulse Oximetry [Resting with Oxygen] Intake & Output 05/14/18 05/15/18 05/15/18 18:59 06:59 18:59 Intake Total 840 / 840 Output Total 500 / 500 300 / 300 Balance 340 / 340 -300 / -300 Weight 100.8 kg Intake: Oral 840 / 840 Output: Urine 500 / 500 300 / 300 Narrative: This is a pleasant white male in no distress. HEENT: Pupils equal, EOMs intact, mouth without lesions Neck: No JVD, neck is supple Heart: irregular irregular rhythm without murmurs or gallops Lungs: Clear to auscultation other than very minimal crackles in the lung bases Abdomen: Soft, nontender, no masses Extremities: No edema, pulses slightly diminished both feet, stasis dermatitis changes with purple discoloration of the skin of both distal lower extremities, no calf tenderness Neuro: Alert, oriented, normal motor exam, sensation intact Results Procedures completed during hospitalization: none Completed studies during hospitalization: Chest X-Ray 05/12/18 22:54 CONCLUSION: 1. Cardiomegaly. 2. Minimal pulmonary vascular congestion. Venous Doppler Study 05/12/18 22:54 CONCLUSION: Negative study. No venous thrombosis of the right lower extremity. Chest X-Ray 05/13/18 00:00 CONCLUSION: Postoperative mitral valve replacement. Cardiomegaly. No acute findings. Labs on day of discharge: Labs from last 24 hours 05/14/18 05/14/18 06:50 06:50 Sodium 140 Potassium 3.8 Chloride 105 Carbon Dioxide 28.0 Anion Gap 7 BUN 15 Creatinine 0.98 Estimated GFR 72 L Random Glucose 111 H Calcium 8.3 L B-Natriuretic Peptide 527 H Laboratory Results - last 72 hr 05/12/18 05/12/18 05/12/18 23:00 23:00 23:00 CBC w Diff Auto diff final WBC 7.8 RBC 3.38 L Hgb 10.7 L Hct 31.9 L MCV 94.5 MCH 31.6 MCHC 33.4 RDW 14.1 Plt Count 249 MPV 6.5 L Neut % (Auto) 73.4 H Lymph % (Auto) 12.4 [place] % (Auto) 9.9 H Eos % (Auto) 3.8 Baso % (Auto) 0.5 Neut # (Auto) 5.7 Lymph # (Auto) 1.0 [place] # (Auto) 0.8 Eos # (Auto) 0.3 Baso # (Auto) 0.0 WBC Differential . Differential Comment . PT 27.5 H INR 2.7 APTT 38.7 H Sodium 136 Potassium 4.3 Chloride 102 Carbon Dioxide 27.5 Anion Gap 7 BUN 20 H Creatinine 1.20 Estimated GFR 57 L Random Glucose 114 H Calcium 8.4 L Magnesium 2.1 Total Bilirubin 0.4 AST 20 ALT 24 Alkaline Phosphatase 81 Total Creatine Kinase 49 Troponin I Less than 0.02 L B-Natriuretic Peptide Total Protein 7.2 Albumin 3.3 L 05/12/18 05/13/18 05/14/18 23:00 02:05 06:50 CBC w Diff WBC RBC Hgb Hct MCV MCH MCHC RDW Plt Count MPV Neut % (Auto) Lymph % (Auto) [place] % (Auto) Eos % (Auto) Baso % (Auto) Neut # (Auto) Lymph # (Auto) [place] # (Auto) Eos # (Auto) Baso # (Auto) WBC Differential Differential Comment PT INR APTT Sodium 140 Potassium 3.8 Chloride 105 Carbon Dioxide 28.0 Anion Gap 7 BUN 15 Creatinine 0.98 Estimated GFR 72 L Random Glucose 111 H Calcium 8.3 L Magnesium Total Bilirubin AST ALT Alkaline Phosphatase Total Creatine Kinase 46 Troponin I Less than 0.02 L B-Natriuretic Peptide 144 H Total Protein Albumin 05/14/18 06:50 CBC w Diff WBC RBC Hgb Hct MCV MCH MCHC RDW Plt Count MPV Neut % (Auto) Lymph % (Auto) [place] % (Auto) Eos % (Auto) Baso % (Auto) Neut # (Auto) Lymph # (Auto) [place] # (Auto) Eos # (Auto) Baso # (Auto) WBC Differential Differential Comment PT INR APTT Sodium Potassium Chloride Carbon Dioxide Anion Gap BUN Creatinine Estimated GFR Random Glucose Calcium Magnesium Total Bilirubin AST ALT Alkaline Phosphatase Total Creatine Kinase Troponin I B-Natriuretic Peptide 527 H Total Protein Albumin - Impressions ITS Impressions Venous Doppler Study 05/12/18 22:54 CONCLUSION: Negative study. No venous thrombosis of the right lower extremity. Chest X-Ray 05/13/18 00:00 CONCLUSION: Postoperative mitral valve replacement. Cardiomegaly. No acute findings. Discharge Plan - Discharge Disposition Patient Disposition: /[facility] Service - Discharge Condition Condition: Stable - Discharge Order Discharge Orders: Discharge Order (Routine); Ordered 05/14/18 Ordered By: Viktor Oro Hospitalist Clear for Discharge (Routine); Ordered 05/14/18 Ordered By: Viktor Oro - Discharge Details Anticipated Discharge Date: 05/14/18 Discharge Comment: Followup with Dr Shetty in 3 days - Physicians Team Primary Care Provider: Matthew Pizano Attending Provider: Viktor Oro
[2018-05-15 08:12] VITALS: O2SAT 93
[2018-05-15] MEDS: Gabapentin 100 MG Capsule PO SCH (09:08)
[2018-05-15] MEDS: Furosemide 40 MG Tablet PO SCH (09:08)
[2018-05-15] MEDS: Ciprofloxacin 500 MG Tablet PO SCH (09:09)
[2018-05-15] MEDS: Metoprolol Tartrate 50 MG Tablet PO SCH (09:09)
[2018-05-15] MEDS: Finasteride 5 MG Tablet PO SCH (09:09)
[2018-05-15] MEDS: Allopurinol 300 MG Tablet PO SCH (09:10)
[2018-05-15 09:25] VITALS: BP 142/65; TEMP 98.3
[2018-05-15 09:40] VITALS: PULSE 83; RESP 22
== END 2018-05-15 13:05 | disposition home health service (06) ==
LOC: PHED 22:38 → PHEDA 22:38 → PH3 05-13 02:52 → PHEDA 05-13 02:52
PROVIDERS: ADMIT Family Medicine; ATTEND Family Medicine
DX: K21.9 Gastro-esophageal reflux disease without esophagitis; J44.9 Chronic obstructive pulmonary disease, unspecified; I25.10 Atherosclerotic heart disease of native coronary artery without angina pectoris; I25.2 Old myocardial infarction; I50.9 Heart failure, unspecified; I87.2 Venous insufficiency (chronic) (peripheral); Z82.49 Family history of ischemic heart disease and other diseases of the circulatory system; I07.1 Rheumatic tricuspid insufficiency; Z95.5 Presence of coronary angioplasty implant and graft; I70.0 Atherosclerosis of aorta; I27.20 Pulmonary hypertension, unspecified; I73.9 Peripheral vascular disease, unspecified; Z95.2 Presence of prosthetic heart valve; Z86.718 Personal history of other venous thrombosis and embolism; I11.0 Hypertensive heart disease with heart failure; Z86.010 Personal history of colon polyps; R07.9 Chest pain, unspecified; E78.5 Hyperlipidemia, unspecified; M10.9 Gout, unspecified; I48.2 Chronic atrial fibrillation; Z99.81 Dependence on supplemental oxygen; N40.0 Benign prostatic hyperplasia without lower urinary tract symptoms; Z86.711 Personal history of pulmonary embolism; R09.02 Hypoxemia; Z87.891 Personal history of nicotine dependence; L03.115 Cellulitis of right lower limb; Z79.01 Long term (current) use of anticoagulants